=== PATIENT | male | born 1945 | race Caucasian/White ===

== ENCOUNTER 2024-03-31 08:52 | Outpatient (AMB) | payer OTHER, SELFPAY ==
--- NOTE | 2024-03-31 08:58 | MHC.OFFVIS ---
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 He describes his pain as sharp and severe in nature. His pain has gotten worse over the last few years in spite of continued non operative treatments. He has had both cortisone injections and viscosupplementation injections which gave him no relief. He has also done physical therapy which aggravates his pain. He has failed the last few months of conservative treatment. Has tried Tylenol and anti-inflammatory medicines which gave him minimal relief. The patient has difficulty walking even short distances because of his pain. At this point is left knee pain is interfering with his activities of daily living and his ability to sleep well through the night. Allergies No Known Allergies Allergy (Verified 03/31/24 09:07) [facility] Social History Current occupational status: retired Current occupation: right handed Physical Exam Const Other: Well-nourished well-developed very friendly male awake alert and oriented x3 in no acute distress Extrem Other: Bilateral lower extremity examination shows good capillary refill, no skin lesions noted, normal sensation light touch Left knee examination shows a minimal effusion, palpable crepitus with range of motion, pain with range of motion, range of motion from -3 degrees to 115 degrees, no instability Results Reviewed Results Reviewed: X-rays of the patient's left knee show end-stage degenerative joint disease with grade 4 qtox-yb-uhin arthritis, subchondral sclerosis, osteophyte formation, no acute bony abnormalities Assessment & Plan Assessment & Plan (1) Arthritis of left knee: Code(s): M17.12 - Unilateral primary osteoarthritis, left knee Category: Medical Plan Mr. Apodaca presents with progressively worsening left knee pain due to end-stage degenerative joint disease. I had a lengthy discussion with the patient regarding the treatment options. At this point he has failed continued non operative treatments. The risks and benefits of left total knee replacement surgery were discussed at length with the patient. The patient wishes to proceed with surgery. He will be scheduled for next available date. He will follow-up as instructed. Feel free to call me at any time should questions regarding his orthopedic management arise. I spent 22 minutes in reviewing the patient's records and imaging studies, seeing the patient and documenting in the medical record. Orders: Orders XR knee LT 3V Today M25.562 - Pain in left knee Coding Level of Care Code Est Pt Level 3 (83021) Complex EM visit Add On G2211 Diagnoses Arthritis of left knee M17.12
[2024-03-31 09:06] VITALS: BMI 25.8
--- OUTSIDE RECORDS SUMMARY | 2024-03-31 09:10 | XMS_ITS ---
Author Name [facility] Organization Unknown Allergies Allergen Reaction Severity Comment Documented Date Source Statu s PERCOCET nausea ENS_AONECT
--- OUTSIDE RECORDS SUMMARY | 2024-03-31 09:10 | XMS_ITS | Clinical Summary ---
Author Organization [facility] [employer] [facility] Address [address] [place] [address] Care Team Providers Care Night Stocker Name Role Phone Suraj Duran MD Primary Care Provider +1- [phone] Allergies No known active allergies Medications Medication Sig Dispensed Refills Start Date End Date Status metFORMIN (GLUCOPHAGE) tablet 500 mg 0 05/11/2018 Active meloxicam (MOBIC) 15 MG tablet 0 05/11/2018 Active atorvastatin (LIPITOR) tablet 40 mg 0 05/11/2018 Active Active Problems Problem Noted Date Diagnosed Date Primary osteoarthritis of left knee 09/16/2018 Chronic pain of left knee 09/16/2018 Arthritis of knee, right 07/21/2018 Primary osteoarthritis of both knees 06/24/2018 Arthritis of knee, left 06/24/2018 Family History Medical History Relation Name Comments Diabetes Mother Hyperlipidemia Sister Relation Name Status Comments Mother Sister Social History Tobacco Use Types Packs/Day Years Used Date Smoking Tobacco: Former Cigarettes 2 Q uit: 1993 Smokeless Tobacco: Never Alcohol Use Standard Drinks/Week Comments No 0 (1 standard drink = 0.6 oz pur e alcohol) Sex and Gender Information Value Date Recorded Sex Assigned at Not on file Gender Identity Not on file Sexual Orientation Not on file Last Filed Vital Signs Vital Sign Reading Time Taken Comments Blood Pressure - - Pulse - - Temperature - - Respiratory Rate - - Oxygen Saturation - - Inhaled Oxygen Concentration - - Weight 86.2 kg (190 lb) 09/15/2018 2:40 PM EDT Height 175.3 cm (5' 9 ) 09/15/2018 2:40 PM EDT Body Mass Index 28.06 09/15/2018 2:40 PM EDT Plan of Treatment Health Maintenance Due Date Last Done Comments Hepatitis C Screening 1945 COVID-19 Vaccine (#1) 06[birth year]17/1947 Depression Screening 1958 Preventative Health Evaluation 1964 DTap / Tdap / Td (1 - Tdap) 1965 Shingrix-Zoster Vaccine (1 of 2) 1996 Fall Risk Assessment 12/17/2011 Pneumococcal Vaccine (1 of 1 - PCV) 12/17/2011 RSV Adult > 60+ Yrs or (1 - 1-dose 75+ series) 2021 Influenza Vaccine (#1) 2023 8, 01/05/2017, 01/23/2016, Additional history exists Hepatitis B Vaccines Aged Out No long er eligible based on patient's age to complete this topic RSV Ped < 20 months Aged Out No longe r eligible based on patient's age to complete this topic Care Teams Night Stocker Relationship Specialty Start Date End Date Suraj Duran MD [address] [address] [place] [address] PCP - General Internal Medicine 06/16/18
== END 2024-03-31 09:28 | disposition home or self-care (01) ==
PROVIDERS: Visit Provider Orthopaedic Surgery
DX: M17.12 Unilateral primary osteoarthritis, left knee (principal)
CPT/HCPCS: 99213

== ENCOUNTER → 2024-03-31 08:56 | Outpatient (BNV) | payer OTHER, SELFPAY | PROVIDERS: Visit Provider Radiology Diagnostic Radiology | DX: M17.12 Unilateral primary osteoarthritis, left knee (principal) | CPT/HCPCS: 73562 ==

== ENCOUNTER 2024-03-31 15:32 | Outpatient (REF) | payer MEDICARE, SELFPAY ==
--- NOTE | ~2024-03-31 | XR_ITS ---
CLINICAL HISTORY: M25.562 - Pain in left knee 3 view left knee Comparison: None Findings: No fractures or dislocations. Tricompartmental osteoarthritis most conspicuous and severe (there is severe joint space narrowing at this level) at level of the medial tibiofemoral joint. A few questionable intra-articular bodies. No radiopaque foreign body. Small suprapatellar joint effusion. 9 mm likely dystrophic calcification projecting anterior to the distal femoral shaft. Vascular calcifications. IMPRESSION: 1. No acute findings. 2. Severe medial tibiofemoral compartmental osteoarthritis. This document has been electronically signed by: Colleen Talamantes MD on 04/01/2024 12:56:37
== END 2024-03-31 15:33 | disposition home or self-care (01) ==
LOC: HO.HOSX 15:32
PROVIDERS: Visit Provider Orthopaedic Surgery
DX: M17.12 Unilateral primary osteoarthritis, left knee (principal)
CPT/HCPCS: 73562; 99202

== ENCOUNTER → 2024-08-06 09:02 | Outpatient (BNVA) | payer MEDICARE, SELFPAY | PROVIDERS: PCP Internal Medicine | DX: Z01.818 Encounter for other preprocedural examination (principal) ==

== ENCOUNTER 2024-09-02 07:57 | Outpatient (AMB) | payer MEDICARE, SELFPAY ==
--- OUTSIDE RECORDS SUMMARY | 2024-09-02 08:01 | XMS_ITS | Encounter Summary ---
Author Organization [facility] Address [address] [place] [address] Care Team Providers Care Environmental Health And Safety Intern Name Role Phone Melvin Lara MD Primary Care Provider [phone]- [phone] Encounter Details Date Type Department Care Team (Latest Contact Info) Description 01/14/2024 Lab Requisition [facility] - Main Lab 299 [facility] [place] [phone] Melvin Lara MD 299 [facility] 322 [place] [address] Type 2 diabetes mellitus without complications (CMS/HCC [...] Description 11/10/2024 8:30 AM EDT Ancillary Procedure [facility] - [facility] 101 300 [facility] 101 [place] [phone] 12/24/2024 8:30 AM EDT Office Visit Vascular Surgery - [place] [address] [facility] 210 [place] [phone] Elieser Haines MD 300 [facility] 210 [place] [address] documented as of this encounter Procedures Procedure [...] greater than 65 years. Test performed at [facility], [address] , [place] [address] Ani Solano MD, PhD - Foundry Molder Blood Venous blood specimen / Unknown 01/14/2024 11:30 AM EST 01/16/2024 11:20 AM EST Melvin Lara MD LAB BLOOD ORDERABLES Final Result [facility] [address] [place] [address] * (ABNORMAL) Hemoglobin A1c (01/14/2024 11:30 AM EST) Hemoglobin A1C 6.7(H) <6.5 % LAB CHEMISTRY METHOD 01/16/2024 7:09 PM EST [facility] Mean Bld Glu Estim. 146 mg/dL LAB CHEMISTRY METHOD 01/16/2024 7:09 PM EST [facility] Blood Venous blood specimen / Unknown 01/14/2024 11:30 AM EST 01/16/2024 11:20 AM EST Melvin Lara MD LAB BLOOD ORDERABLES Final Result [facility] 299 [place] [address], [place] [phone] documented in this encounter Visit Diagnoses Diagnosis Type 2 diabetes mellitus without complications (CMS/HCC V24, CMS/HCC V28) documented in this encounter Care Teams Environmental Health And Safety Intern Relationship Specialty Start Date End Date Melvin Lara MD [address] [place] [id number] PCP - General Internal Medicine 01/21/24 documented as of this encounter
[2024-09-02 08:02] VITALS: BMI 25.8
--- NOTE | 2024-09-02 08:02 | A.OFFVIS_ITS ---
Vital Signs 09/02/24 08:02 Height 5 ft 9 in Weight 175 lb BMI 25.8 Intake Visit Reasons: Pre-Op: L TKA w/ 09/06/24 Intake Note: Mani is a 78 year old male who presents today as a new patient for evaluation of his left knee pain. He describes his pain as sharp and severe in nature. His pain has gotten worse over the last few years in spite of continued non operative treatments. He has had both cortisone injections and viscosupplementation injections which gave him no relief. He has also done physical therapy which aggravates his pain. He has failed the last few months of conservative treatment. Has tried Tylenol and anti-inflammatory medicines which gave him minimal relief. The patient has difficulty walking even short distances because of his pain. At this point is left knee pain is interfering with his activities of daily living and his ability to sleep well through the night. Allergies oxycodone (From Percocet) Allergy (Intermediate, Verified 09/02/24 08:07) Nausea Medication List - Last Reconciled 09/02/24 by Silvio Zurita MD amlodipine 5 mg PO QAM ascorbic acid (vitamin C) (Vitamin C) 1,000 mg PO QAM atorvastatin 40 mg PO BEDTIME gabapentin 300 mg PO TID levothyroxine 50 mcg PO QAM losartan 100 mg PO QAM meloxicam 7.5 mg PO QAM metformin ER 500 mg PO TID omeprazole 20 mg PO QAM walker Folding front wheeled walker [facility] Medical History [place] (hard of hearing) GERD (gastroesophageal reflux disease) Neuropathy HTN (hypertension) Hypothyroidism Varicose vein of leg Osteoarthritis Dyslipidemia Diabetes mellitus AAA (abdominal aortic aneurysm) Surgical History Hx of bilateral cataract extraction Hx of appendectomy History of varicose vein procedure Hx of arthroscopy of right knee History of carpal tunnel release Hx of colonoscopy (2002) Social History Are you a primary continuum of care manager to a significant other at home: No Do you presently have visiting nurse or other home services: No Comment: advised of trip hazard Patient Tobacco Use Status: Former Tobacco user Tobacco use type: Cigarette Years Smoked: 25 Current occupational status: retired Current occupation: right handed Physical Exam Vital Signs: BMI result Body Mass Index 25.8 Const Other: Well-nourished well-developed very friendly male awake alert and oriented x3 in no acute distress Extrem Other: Bilateral lower extremity examination shows good capillary refill, no skin lesions noted, normal sensation light touch Left knee examination shows a minimal effusion, palpable crepitus with range of motion, pain with range of motion, range of motion from -3 degrees to 115 degrees, no instability Results Reviewed Results Reviewed: X-rays of the patient's left knee show end-stage degenerative joint disease with grade 4 [id number] arthritis, subchondral sclerosis, osteophyte formation, no acute bony abnormalities Assessment & Plan Assessment & Plan (1) Arthritis of left knee: Code(s): M17.12 - Unilateral primary osteoarthritis, left knee Category: Medical Plan Mr. Apodaca presents with left knee pain due to end-stage degenerative joint disease. I had a lengthy discussion with the patient regarding the treatment options. At this point he has failed continued non operative treatments. The risks and benefits of left total knee replacement surgery were discussed at length with the patient. The patient wishes to proceed with surgery. business services coordinator will be consulted following his surgery for home physical therapy and nursing. He will follow up as instructed. Feel free to call me at any time should questions regarding his orthopedic management arise. I spent 22 minutes in reviewing the patient's records and imaging studies, seeing the patient and documenting in the medical record. Coding Level of Care Code Est Pt Level 3 (49062) Complex EM visit Add On G2211 Diagnoses Arthritis of left knee M17.12
== END 2024-09-02 08:29 | disposition home or self-care (01) ==
LOC: HO.HOS 07:57
PROVIDERS: PCP Internal Medicine; Visit Provider Orthopaedic Surgery
DX: M17.12 Unilateral primary osteoarthritis, left knee (principal)
CPT/HCPCS: 99213; G2211

== ENCOUNTER → 2024-09-02 07:57 | Outpatient (BNVA) | payer MEDICARE, SELFPAY | PROVIDERS: PCP Internal Medicine; Visit Provider Orthopaedic Surgery | DX: Z01.818 Encounter for other preprocedural examination (principal); M17.12 Unilateral primary osteoarthritis, left knee | CPT/HCPCS: 99212 ==

== ENCOUNTER 2024-09-06 07:02 | Day surgery (SDC) | payer MEDICARE, SELFPAY ==
--- OUTSIDE RECORDS SUMMARY | 2024-07-15 14:57 | XMS_ITS | Data Portability ---
Author Organization [place] [facility] [place] Address [address] [place] [address] Care Team Providers Care Production Proofreader Name Role Phone ALEX BACA Primary Care Provider [phone] Assessment Encounter Date Assessment Date Assessment LastModified by Organization Details LastModified Time 12/26/2022 12/26/2022 This is a pleasant 77-year-old male here for evaluation bilateral shoulder discomfort which originated from doing yard work over the summer however he is asymptomatic on the left side he is symptomatic on the right with findings consistent with impingement syndrome. And arthritis. I had discussion with the patient regarding management. He opted for cortisone injection of the right shoulder joint at today's visit. After verbal consent was granted by the patient. Procedure was carried out on the right shoulder. Patient tolerated the procedure well. Aftercare instructions were discussed in detail. Follow-up visit 3 months time for repeat clinical exam. Should symptoms not improve or worsen he should contact my office immediately. He agrees with above-noted plan he can take gbri-gqu-[id number] pain medication for pain suppression. This is a very pleasant 77-year-old male who had onset of bilateral shoulder pain back in the summer after doing yard work for indirect care and treatment in conjunction with Dr. Strong Additional treatment plan discussed with the patient (only initiated if in boldface font) otherwise not applicable. Treatment may include the following; - Provider focused nonsteroidal anti-inflammator y regimen (discussed were the pros, cons, benefits and risks as well as any black box warnings) in patients over 60 years old they should be very cautious in taking these medications due to potential decreased kidney function and or elevated blood pressure. - Analgesic pain medication for pain suppression (discussed were the pros, cons, benefits and risks as well as any black box warnings) - The use of topical pain relieving medication were discussed - The use of ice to decrease inflammation and pain - The use of assistive ambulatory devices for ambulation and fall prevention - Formal specific guided physical therapy program I reviewed my findings at length with the patient today. ? ? ?We discussed the nature and etiology of this problem along with current treatment options. We discussed the expected course and outcomes and what to expect. We also discussed risks and benefits. ? ? ? All of their questions were answered today, and there was exhibited understanding and comprehension of all that was discussed. Time Spent: 10 minutes were spent reviewing previous imaging and charting. ? ? ?10 minutes were spent obtaining patient history. ? ? ?5 minutes were spent on physical exam. ? ? ?5? ? ?minutes were spent explaining diagnosis and assessment. Today's documentation was made using voice recognition software. This note may contain grammatical errors secondary to the software. [email or web address] Not available 12/26/2022 09:37:06 Plan of Treatment Reminders Order Date Submit Date Provider Last Modified By Organization Details Last Modified Time Details Appointments None recorded. Lab None recorded. Referral None recorded. Procedures None recorded. Surgeries None recorded. Imaging XR, shoulder, 2 or more view 2022 023 [email or web address] [facility], [address], [place], [address], 3 12:06:13 XR, shoulder, 2 or more view 2022 023 [email or web address] [facility], [address], [place], [address], 12:06:13 Medication Orders Kenalog 40 mg/mL suspension for injection 2022 023 [email or web address] [id number], [address] [place], [address], 3 12:06:13 lidocaine (PF) 10 mg/mL (1 %) injection solution 2022 023 [email or web address] [facility], [address] [place], [address], 3 12:06:13 Patient TargetsNo targets recorded. Patient InstructionsNo instructions recorded. Reason for Referral None Reported. Procedures Surgical History Date Name Laterality Status Provider Name and Address Organization Details Recorded Time 3 Shoulder Joint/Bursa Asp & Inj completed JOCE SMITH PA-C [address] [place] [address],[facility] [address], [place], [address], [place] [facility] 12/26/2022 09:36:01 procedure on appendix completed [facility] - [facility] 12/26/2022 09:43:56 Imaging Results None recorded. Procedure Notes None recorded. Medical Equipment None Reported. Allergies Allergen ID Allergen Name Allergen Category Reaction Reaction Severity Criticality Documentation Date Start Date Code Code System Note Provider Name and Address Organization Details Recorded Time 92 acetamino phen / oxycodone medicatio n nausea Not available Not available 12/26/2022 [address] 3 [facility], [place] - [facility] 3 08:59:46 Medications Name Sig Start Date Stop Date Status Note LastModified by Organization Details LastModified Time losartan 50 mg tablet active Not Available Not Available No t Available atorvastati n 40 mg tablet active Not Available Not Available Not Available azithromyci n 250 mg tablet TAKE 2 TABLETS BY MOUTH FOR 1 DAY THEN, TAKE 1 TABLET BY MOUTH DAILY FOR 4 DAYS active Not Available Not Available No t Available ketorolac 0.5 % eye drops PLEASE SEE ATTACHED FOR DETAILED DIRECTION S active Not Available Not Available No t Available Kenalog 40 mg/mL suspension for injection Take 1 mL by injection route. 2022 active Not Available Not Available Not Avai lable meloxicam 7.5 mg tablet active Not Available Not Available Not Available benzonatate 100 mg capsule TAKE 1 CAPSULE BY MOUTH 3 TIMES DAILY NEEDED FOR COUGH FOR UP TO 7 DAYS. active Not Available Not Available No t Available levothyroxi ne 50 mcg tablet TAKE 1 TABLET BY MOUTH EVERY DAY active Not Available Not Available No t Available lisinopril 10 mg tablet 12/26 completed Not Available Not Available Not Available losartan 25 mg tablet active Not Available Not Available No t Available gabapentin 300 mg capsule active Not Available Not Available Not Available metformin ER 500 mg tablet,exte nded release 24 hr active Not Available Not Available Not Available lidocaine (PF) 10 mg/mL (1 %) injection solution Take 2 mL by injection route. 2022 active Not Available Not Available Not Jeff lable Vitals Date Recorded Body height Body mass index (BMI) Body weight Provider Name and Address Organization Details Last Updated DateTime 12/26/2022 177.8 cm 24.4 kg/m2 01925.7 g Christina Meyer [place] [facility] 12/26/2022 09:38:47 Social History Question Answer Notes LastModified by Organizat ion Details LastModified Time Tobacco Smoking Status Never Smoker Christina Meyer [facility], [place] - [facility] 12/26/2022 09:41:28 What Is Your Level Of Alcohol Consumption? None Information not available 12/26/2022 Do You Use Any Illicit Or Recreational Drugs? No Information not available 12/26/2022 Do You Or Have You Ever Used Any Other Forms Of Tobacco Or Nicotine? No Information not available 12/26/2022 Sex: Unknown Functional Status None recorded. Mental Status None recorded. Family History Relationship Description Onset Age of this Age Resolved Age Notes LastModified by Organization Details LastModified Time Mother Arthritis Not available 12/26/2022 09:43:08 Mother Diabetes mellitus Not available 2022 09:43:23 Mother Hypertensive disorder Not available 2022 09:43:44 Sister Family history of malignant neoplasm Not available 2022 09:43:16 Sister Hypercholest erolemia Not available 2022 09:43:35 Medical History Condition Response Diabetes Y Vascular Disease Y Thyroid Problems Y Reflux/GERD Y Hypertension Y Past Encounters Encounter ID Performer Location Encounter Start Date Encounter Closed Date Diagnosis/Indication Diagnosis SNOMED-CT Code Diagnosis ICD10 Code Diagnosis Note [id number] [place] [address] [address] 12/26/2022 08:38:13 12/26/2022 09:35:04 Pain of right shoulder joint [id number] 6473389 M25.511 Pain of le ft shoulder joint [id number] 2194704 M25.512 Health Concerns Section Related Observation LastModified by Organization Detai ls LastModified Time None Recorded Concern Status LastModified by Organization Details LastModified Time None Recorded Advance Directives Directive None Recorded Payers Encounter Date Sequence Insurance Name Policy Number Policy Nguyen Covered Member ID Nguyen Member ID Guarantor Name 12/26/2022 1 [facility] (MEDICARE REPLACEMENT/A DVANTAGE - HMO) [id number] Mani Apodaca [id number] Mani Apodaca Notes Date Note Type Note Provider Name and Address Organization Details Recorded Time 12/26/2022 text/html This is a very pleasant 77-year-old male appears younger than his stated age accompanied by his at today's visit. 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 He states however it is since dissipated he is asymptomatic on the left shoulder he has occasional nocturnal symptoms on the right pain however the lateral deltoid with certain movements. He denies any weakness or paresthesia denies neck symptoms. Here for evaluation treatment. JOCE SMITH PA-C [address] [place] [address], [place], [address], [place] [facility] 12/26/2022 10:31:32
--- OUTSIDE RECORDS SUMMARY | 2024-07-15 14:57 | XMS_ITS | Clinical Summary ---
Author Organization [facility] Address [address] [place] [address] Care Team Providers Care Tricot Knitting Machine Operator Name Role Phone Suraj Duran MD Primary Care Provider +1- [phone] Allergies No known active allergies Medications Medication [...] age to complete this topic Care Teams Tricot Knitting Machine Operator Relationship Specialty Start Date End Date Suraj Duran MD [address] [facility] [facility] [address] [place] [address] PCP - General Internal Medicine 06/16/18
--- OUTSIDE RECORDS SUMMARY | 2024-07-15 14:57 | XMS_ITS | Clinical Summary ---
Author Organization [facility] Address [address] [place] [phone] Phone Care Team Providers Care Lap Regulator Name Role Phone Melvin Lara MD Primary Care Provider +1- [phone] Surgical History Surgery Date Site/Laterality Comments CARPAL TUNNEL RELEASE 06/09/1997 Left PROCEDURE: HISTORICAL CARPAL TUNNEL REL KNEE SURGERY 1988 Right PROCEDURE: HISTORICAL KNEE SURGERY; COMMENT: Dr. Lester APPENDECTOMY PROCEDURE: HISTORICAL APPENDECTOMY CATARACT EXTRACTION 01/2023 PROCEDURE: HISTORICAL CATARACT REMOVAL Medical History Medical History Date Comments Cataracts, bilateral 02/22/2019 DX:Cataract s, bilateral; COMMENT: [facility]. Appt in May 2019 Osteoarthritis 02/22/2019 DX:Osteoarthriti s History of varicose vein ligation 02/22/2019 DX:History of varicose vein ligation; COMMENT: Dr. Templeton Abdominal aortic aneurysm (A AA) 3.0 cm to 5.5 cm in diameter in male ([facility] V24) 02/22/2019 DX:Abdominal aortic aneurysm (AAA) 3.0 cm to 5.5 cm in diameter in male (HCC); COMMENT: 2014-3.1cm 2016 3.4 CM 2018 normal Diabetic neuropathy ([facility]CC V24, [facility] V28) 03/31/2019 DX:Diabetic neuropathy (HCC) Hypothyroidism 02/22/2019 DX:Hypothyroidis m Dyslipidemia 03/31/2019 DX:Dyslipidemia Type 2 diabetes mellitus wit h vascular disease (CMS/HCC V24, 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 V24, [facility]/HCC V28) 03/31/2019 DX:Type 2 diabetes mellitus with cataract (HCC) Hiatal hernia 09/27/2019 DX:Hiatal hernia ; COMMENT: Barium swallow 09/17/2019 Family History Medical History Relation Name Comments Diabetes Mother Hyperlipidemia Sister Relation Name Status Comments Father Mother Sister Social History Tobacco Use Types Packs/Day Years Used Date Smoking Tobacco: Former Smokeless Tobacco: Never Alcohol Use Standard Drinks/Week Comments No 0 (1 standard drink = 0.6 oz pur e alcohol) Sex and Gender Information Value Date Recorded Sex Assigned at Not on file Legal Sex Male 9:08 PM EST Gender Identity Not on file Sexual Orientation Not on file Obstetrics History Last Filed Vital Signs Vital Sign Reading Time Taken Comments Blood Pressure 131/75 12/22/2023 9:37 AM EDT Sit ting R Arm Pulse 73 12/22/2023 9:37 AM EDT Temperature - - Respiratory Rate - - Oxygen Saturation - - Inhaled Oxygen Concentration - - Weight 83.5 kg (184 lb) 12/22/2023 9:37 AM EDT Height 175.3 cm (5' 9 ) 12/22/2023 9:37 AM EDT Body Mass Index 27.17 12/22/2023 9:37 AM EDT Plan of Treatment Upcoming Encounters Date Type Department Care Team (Late st Contact Info) Description 11/10/2024 8:30 AM EDT Ancillary Procedure [facility] [address] [address] [place] [address] 12/24/2024 8:30 AM EDT Office Visit Vascular Surgery - [place] [address] [place] [address] Elieser Haines MD [address] [place] [address] Health Maintenance Due Date Last Done Comments Diabetes: Annual Foot Exam 1955 Diabetes: Annual Retina Eye Exam 1955 RSV Immunization Adult Patients (1 - 1-dose 75+ series) 2021 Cholesterol Screening (Lipid Panel) 02/09/2022 Depression Screening 02/09/2022 Falls Risk Assessment 02/09/2022 Hepatitis C Screening 02/09/2022 Medicare Annual Wellness Visit 02/09/2022 Social Influencers of Health Screening 02/09/2022 Diabetes: Annual Urine Albumin-Creatinine Ratio (uACR) 02/20/2022 COVID-19 Vaccine ( season) 2024 12/11/2023, 12/27/2022, 11/24/2022, Additional history exists Diabetes: Blood Sugar Control Test (HGBA1C) 07/13/2024 01/14/2024, 08/22/2023 Diabetes: Annual GFR (Glomerular Filtration Rate) 08/21/2024 08/22/2023 Hypertension/CHF/CAD Annual BMP Blood Test 08/21/2024 08/22/2023 DTaP,Tdap,and Td Vaccines (4 - Td or Tdap) 05/08/2033 05/09/2023, 01/18/2013, 05/22/2007 Hepatitis A Vaccines Aged Out 01/22/2010 No long er eligible based on patient's age to complete this topic Pneumococcal Vaccine: 50+ Years Completed 01/24/2020, 09/04/2015, 01/27/2008 Zoster Vaccines Completed 09/20/2022, 04/24/2022 Influenza Vaccine Completed 12/11/2023, , 11/19/2022, Additional history exists HIB Vaccines Aged Out No longer eligi ble based on patient's age to complete this topic HPV Vaccines Aged Out No longer eligi ble based on patient's age to complete this topic Hepatitis B Vaccines Aged Out No long er eligible based on patient's age to complete this topic IPV Vaccines Aged Out No longer eligi ble based on patient's age to complete this topic MMR Vaccines Aged Out No longer eligi ble based on patient's age to complete this topic Meningococcal ACWY Vaccine Aged Out N o longer eligible based on patient's age to complete this topic Meningococcal B Vaccine Aged Out No l onger eligible based on patient's age to complete this topic RSV Immunization Patients Under 20 months Aged Out No longer eligible based on patient's age to complete this topic Varicella Vaccines Aged Out No longer eligible based on patient's age to complete this topic Procedures Procedure Name Priority Date/Time Associated Diagnosis Comments HEMOGLOBIN A1C Routine 01/14/2024 11:30 AM EST Type 2 diabetes mellitus without complications (CMS/HCC) from Last 3 Months or Most Recently Relevant to Health Maintenance Results * (ABNORMAL) Hemoglobin A1c (01/14/2024 11:30 AM EST) Hemoglobin A1C 6.7(H) <6.5 % LAB CHEMISTRY METHOD 01/16/2024 7:09 PM EST [facility] Mean Bld Glu Estim. 146 mg/dL LAB CHEMISTRY METHOD 01/16/2024 7:09 PM EST [facility] Blood Venous blood specimen / Unknown 01/14/2024 11:30 AM EST 01/16/2024 11:20 AM EST us Melvin Lara MD LAB BLOOD ORDERABLES Final Result [facility] [address] [place] [address], from Last 3 Months or Most Recently Relevant to Health Maintenance Insurance [employer] MEDICARE [employer] MED[employer]ARE Care Teams Lap Regulator Relationship Specialty Start Date End Date Melvin Lara MD [address] [place] [address] PCP - General Internal Medicine 01/21/24
--- OUTSIDE RECORDS SUMMARY | 2024-07-15 14:57 | XMS_ITS | Encounter Summary ---
Author Organization [facility] Address [id number] [place] [phone] Care Team Providers Care Travel Journalist Name Role Phone Melvin Lara MD Primary Care Provider [phone] Encounter Details Date Type Department Care Team (Latest Contact Info) Description 01/14/2024 Lab Requisition [facility] - Main Lab 299 [facility] [place] [phone] Melvin Lara MD 299 [facility] 322 [place] [address] Type 2 diabetes mellitus without complications (CMS/HCC V24, CMS/HCC V28) Social History Tobacco Use Types Packs/Day Years Used Date Smoking Tobacco: Never Assessed Sex and Gender Information Value Date Recorded Sex Assigned at Not on file Legal Sex Male 9:08 PM EST Gender Identity Not on file Sexual Orientation Not on file documented as of this encounter Plan of Treatment Upcoming Encounters Date Type Department Care Team (Late st Contact Info) Description 11/10/2024 8:30 AM EDT Ancillary Procedure [facility] - [facility] 101 [address] [facility] 101 [place] [phone] 12/24/2024 8:30 AM EDT Office Visit Vascular Surgery - [place] 300 [facility] [address] [place] [phone] Elieser Haines MD 300 [facility] 210 [place] [address] documented as of this encounter Procedures Procedure Name Priority Date/Time Associated Diagnosis Comments FRUCTOSAMINE Routine 01/14/2024 11:30 AM EST Type 2 diabetes mellitus without complications (CMS/HCC) HEMOGLOBIN A1C Routine 01/14/2024 11:30 AM EST Type 2 diabetes mellitus without complications (CMS/HCC) documented in this encounter Results * Fructosamine (01/14/2024 11:30 AM EST) Fructosamine 355 SeeBelow umol /L 01/19/2024 10:18 AM EST [facility] Comment: There is no established reference range for patients aged less than 19 years or greater than 65 years. Test performed at [facility], [address] , [place], [place] ??[address] ? [phone] Ani Solano MD, PhD - Crossbar Switch Adjuster Blood Venous blood specimen / Unknown 01/14/2024 11:30 AM EST 01/16/2024 11:20 AM EST us Melvin Lara MD LAB BLOOD ORDERABLES Final Result [facility] [address] [place] [address] * (ABNORMAL) Hemoglobin A1c (01/14/2024 11:30 AM EST) Hemoglobin A1C 6.7(H) <6.5 % LAB CHEMISTRY METHOD 01/16/2024 7:09 PM EST [facility] Mean Bld Glu Estim. 146 mg/dL LAB CHEMISTRY METHOD 01/16/2024 7:09 PM EST [facility] Blood Venous blood specimen / Unknown 01/14/2024 11:30 AM EST 01/16/2024 11:20 AM EST us Melvin Lara MD LAB BLOOD ORDERABLES Final Result [facility] [address] [phone] documented in this encounter Visit Diagnoses Diagnosis Type 2 diabetes mellitus without complications (CMS/HCC V24, CMS/HCC V28) documented in this encounter Care Teams Travel Journalist Relationship Specialty Start Date End Date Melvin Lara MD [address] [address] PCP - General Internal Medicine 01/21/24 documented as of this encounter
[2024-08-09 10:24] VITALS: BP 133/72; PULSE 74; RESP 20; O2SAT 96; BMI 26.6
[2024-08-09 12:46] LABS: MRSA Nasal PCR NEGATIVE (Negative); SA Nasal PCR POSITIVE (Negative)
[2024-09-03 13:17] LABS: Hematocrit 37.4 % (42.0-52.0); Hemoglobin 13.1 g/dl (14.0-18.0); Mean Corpuscular HGB Conc 35.0 g/dl (31.0-36.0); Mean Corpuscular Hemoglobin 30.0 pg (27.0-33.0); Mean Corpuscular Volume 85.6 fL (80.0-98.0); NRBC Abs Auto 0.000 X10*3/uL (0.0-0.012); NRBC Pct Auto 0.0 /100WBC (0.0-0.2); Platelet Count 274 X10*3/uL (160-400); Red Blood Count 4.37 X10*6/uL (4.60-5.80); White Blood Count 10.2 X10*3/uL (4.8-10.8)
[2024-09-03 13:51] LABS: Anion Gap 13 (12-20); Blood Urea Nitrogen 11 mg/dL (9-16); Calcium 9.0 mg/dL (8.4-10.2); Carbon Dioxide 25 mmol/L (22-29); Chloride 97 mmol/L (96-108); Creatinine Clr Calc Pharmacy 60.0; Estimated Glomerular Filt Rate > 60; Potassium 3.9 mmol/L (3.3-5.1); Sodium 131 mmol/L (135-145)
[2024-09-06] VITALS (9 sets, daily range): BP systolic 112–153; BP diastolic 67–96; PULSE 65–86; RESP 16–18; TEMP 36–36.6; O2SAT 94–98; BMI 25.2; BMI 26.3
[2024-09-06 07:58] LABS: Glucose, Whole Blood 150 mg/dL (60-115)
[2024-09-06] MEDS: Lactated Ringers 1,000 ML 100 ML IVCONT ×3 (08:05→23:14)
--- NOTE | 2024-09-06 08:40 | HO.ANESPROP2 ---
Documented by User: Berta Mukherjee NP 09/03/24 14:14 HPI - Anesthesia Eval Consult details Narrative: 78yo M for Left Knee Replacement Total, 09/06/24 Medically optimized for surgery per [facility] No recent illness No CP/SOB with a lot of walking DM: Does not check POC. A1C = 7.1% GERD: ppi controls AAA: Follows [facility] vascular with yearly imaging. 2023 @ 3.2 MOLST/DNR: reviewed periop reversal PMFSH Active Problems Active Problems: All Active Problems Pre-op exam (Acute) Arthritis of left knee (Acute) Left knee pain (Acute) Past Medical History Medical History [place] (hard of hearing) GERD (gastroesophageal reflux disease) Neuropathy HTN (hypertension) Hypothyroidism Varicose vein of leg Osteoarthritis Dyslipidemia Diabetes mellitus AAA (abdominal aortic aneurysm) Family History Family history of problems with anesthesia: No Surgical History Surgical History Hx of bilateral cataract extraction Hx of appendectomy History of varicose vein procedure Hx of arthroscopy of right knee History of carpal tunnel release Hx of colonoscopy (2002) History of Problems with Anesthesia: No Social History Social History Are you a primary home care liaison to a significant other at home: No Do you presently have visiting nurse or other home services: No Comment: advised of trip hazard Patient Tobacco Use Status: Former Tobacco user Tobacco use type: Cigarette Years Smoked: 25 Use of substances other than those prescribed or required for medical reasons: No Have you been hit, kicked, punched, or otherwise hurt by someone within the past year? If so, by whom?: No Spiritual Healthcare Practices: no Anabaptist Healthcare Practices: no Cultural Healthcare Practices: no Are you DNR?: Yes Advance Directives Information Provided: Yes (advised to bring copies DOS) Advance Directives on File: No Poor oral hygiene: No Current occupational status: retired Current occupation: right handed Meds Allergies Allergy/AdvReac Type Severity Reaction Status Date / Time oxycodone Allergy Intermediate Nausea Verified 09/06/24 07:12 Home Medications ?Medication ?Instructions ?Recorded ?Confirmed ?Last Taken ?Type amlodipine 5 mg tablet 5 mg PO QAM 08/06/24 09/02/24 09/06/24 History atorvastatin 40 mg tablet 40 mg PO BEDTIME 08/06/24 09/02/24 09/05/24 History gabapentin 300 mg capsule 300 mg PO TID 08/06/24 09/02/24 09/05/24 History levothyroxine 50 mcg tablet 50 mcg PO QAM 08/06/24 09/02/24 09/06/24 History losartan 100 mg tablet 100 mg PO QAM 08/06/24 09/02/24 09/05/24 History meloxicam 7.5 mg tablet 7.5 mg PO QAM 08/06/24 09/06/24 08/23/24 History metformin 500 mg tablet,extended 500 mg PO TID 08/06/24 09/02/24 09/05/24 History release 24 hr omeprazole 20 mg tablet,delayed 20 mg PO QAM 08/06/24 09/02/24 09/06/24 History release ascorbic acid (vitamin C) 500 mg 1,000 mg PO QAM 08/09/24 09/06/24 Unknown History chewable tablet (Vitamin C) Exam Height,Weight and Vital Signs: Height 5 ft 9 in Weight 81.647 kg Last Vital Signs Pulse 74 08/09/24 10:24 Resp 20 08/09/24 10:24 BP 133/72 08/09/24 10:24 Pulse Ox 96 08/09/24 10:24 O2 Del Method Room Air 08/09/24 10:24 Pertinent Lab Results Pertinent Lab Results: Lab Results 08/09/24 Range/Units 10:40 Nasal Screen MRSA (PCR) NEGATIVE (Negative) Nasal S. aureus Screen POSITIVE A (Negative) Nasal MRSA/S.aureus Interp SEE NOTE Lab Results 08/09/24 09/03/24 Range/Units 10:40 12:50 WBC 10.2 (4.8-10.8) X10*3/uL RBC 4.37 L (4.60-5.80) X10*6/uL Hgb 13.1 L (14.0-18.0) g/dl Hct 37.4 L (42.0-52.0) % MCV 85.6 (80.0-98.0) fL MCH 30.0 (27.0-33.0) pg MCHC 35.0 (31.0-36.0) g/dl RDW 12.5 (11.0-16.0) % Plt Count 274 (160-400) X10*3/uL MPV 10.1 (9.4-12.4) fL Absolute Nucleated RBC 0.000 (0.0-0.012) X10*3/uL Nucleated RBC % (auto) 0.0 (0.0-0.2) /100WBC Sodium 131 L (135-145) mmol/L Potassium 3.9 (3.3-5.1) mmol/L Chloride 97 (96-108) mmol/L Carbon Dioxide 25 (22-29) mmol/L Anion Gap 13 (12-20) BUN 11 (9-16) mg/dL Creatinine 1.03 (0.5-1.4) mg/dL Estim Creat Clear Calc 60.0 Estimated GFR > 60 Random Glucose 113 (60-115) mg/dL Calcium 9.0 (8.4-10.2) mg/dL Nasal Screen MRSA (PCR) NEGATIVE (Negative) Nasal S. aureus Screen POSITIVE A (Negative) Nasal MRSA/S.aureus Interp SEE NOTE Blood Type O Positive Antibody Screen NEGATIVE Narrative Narrative: EKG 07/2024 Ventricular Rate: 71 ?BPM Atrial Rate: 71 ?BPM P-R Interval: 198 ?ms QRS Duration: 88 ?ms Q-T Interval: 396 ?ms QTC Calculation(Bazett): 430 ?ms P [place]: 61 ?degrees R [place]: -63 ?degrees T [place]: 13 ?degrees Normal sinus rhythm Left axis deviation Low voltage QRS infero-posterior infarct , age undetermined Abnormal ECG When compared with ECG of 22-Apr-2006 12:02, Manual comparison by [facility] preop provider states - abnormal EKG dating back to 2006 unchanged Airway Mallampati Class: II TM Dist: >3cm Neck ROM: Full Denture: Upper and Lower Heart: RRR Lungs: CTAB Assessment and Plan Assessment Anesthesia Assessment: Chart Reviewed Final Anesthetic Review Family History of Problems with Anesthesia: No History of Problems with Anesthesia: No Documented by User: Rossy Figueroa, 09/06/24 09:44 [facility] Past Medical History Medical History [place] (hard of hearing) GERD (gastroesophageal reflux disease) Neuropathy HTN (hypertension) Hypothyroidism Varicose vein of leg Osteoarthritis Dyslipidemia Diabetes mellitus AAA (abdominal aortic aneurysm) Family History Family history of problems with anesthesia: No Surgical History Surgical History Hx of bilateral cataract extraction Hx of appendectomy History of varicose vein procedure Hx of arthroscopy of right knee History of carpal tunnel release Hx of colonoscopy (2002) History of Problems with Anesthesia: No Social History Social History Are you a primary home care liaison to a significant other at home: No Do you presently have visiting nurse or other home services: No Comment: advised of trip hazard Patient Tobacco Use Status: Former Tobacco user Tobacco use type: Cigarette Years Smoked: 25 Use of substances other than those prescribed or required for medical reasons: No Have you been hit, kicked, punched, or otherwise hurt by someone within the past year? If so, by whom?: No Spiritual Healthcare Practices: no Anabaptist Healthcare Practices: no Cultural Healthcare Practices: no Are you DNR?: Yes Advance Directives Information Provided: Yes (advised to bring copies DOS) Advance Directives on File: No Poor oral hygiene: No Current occupational status: retired Current occupation: right handed Meds Allergies Allergy/AdvReac Type Severity Reaction Status Date / Time oxycodone Allergy Intermediate Nausea Verified 09/06/24 07:12 Home Medications ?Medication ?Instructions ?Recorded ?Confirmed ?Last Taken ?Type amlodipine 5 mg tablet 5 mg PO QAM 08/06/24 09/02/24 09/06/24 History atorvastatin 40 mg tablet 40 mg PO BEDTIME 08/06/24 09/02/24 09/05/24 History gabapentin 300 mg capsule 300 mg PO TID 08/06/24 09/02/24 09/05/24 History levothyroxine 50 mcg tablet 50 mcg PO QAM 08/06/24 09/02/24 09/06/24 History losartan 100 mg tablet 100 mg PO QAM 08/06/24 09/02/24 09/05/24 History meloxicam 7.5 mg tablet 7.5 mg PO QAM 08/06/24 09/06/24 08/23/24 History metformin 500 mg tablet,extended 500 mg PO TID 08/06/24 09/02/24 09/05/24 History release 24 hr omeprazole 20 mg tablet,delayed 20 mg PO QAM 08/06/24 09/02/24 09/06/24 History release ascorbic acid (vitamin C) 500 mg 1,000 mg PO QAM 08/09/24 09/06/24 Unknown History chewable tablet (Vitamin C) Exam Exam Date and Time: 09/06/24 0840 Height,Weight and Vital Signs: Height 5 ft 9 in Weight 81.647 kg Last Vital Signs Pulse 74 08/09/24 10:24 Resp 20 08/09/24 10:24 BP 133/72 08/09/24 10:24 Pulse Ox 96 08/09/24 10:24 O2 Del Method Room Air 08/09/24 10:24 Vital Signs Pulse Rate 74 08/09/24 10:24 Respiratory Rate 20 08/09/24 10:24 Blood Pressure 133/72 08/09/24 10:24 Pulse Oximetry 96 08/09/24 10:24 Oxygen Delivery Method Room Air 08/09/24 10:24 Temperature 97.7 F 09/06/24 07:57 Pulse Rate 72 09/06/24 07:57 Respiratory Rate 16 09/06/24 07:57 Blood Pressure 137/75 09/06/24 07:57 Pulse Oximetry 94 09/06/24 07:57 Oxygen Delivery Method Room Air 09/06/24 07:57 Airway Mallampati Class: II TM Dist: >3cm Neck ROM: Full Denture: Upper and Lower Heart: S1S2 Assessment and Plan Assessment Anesthesia Assessment: Anesthesia Plan Discussed and Chart Reviewed Final Anesthetic Review Family History of Problems with Anesthesia: No History of Problems with Anesthesia: No NPO: Yes ASA Class: II Final Preanesthetic Review: No Changes in Pt Med Stat, Meds/Allgs Chart Reviewed, Consent Obtained/Reviewed, Anes Risks/Benef Reviewed and DNR Form (If Appl.) (DNR/DNI suspended during perioperative period. Will resume original status upon discharge from PACU.) Patient Risk: Low Procedure Risk: Intermediate Anesthetic Plan Anesthetic Plan: Spinal, Regional Block (left addictor canal and left ipack blocks) and Agree w/ Assess. and Plan Disposition: Standard PACU
--- NOTE | 2024-09-06 11:59 | P.BOP_ITS ---
Brief Operative Note Date of Service: 09/06/24 Pre-op diagnosis: Left knee degenerative joint disease Post-op diagnosis: same Procedure: Left total knee arthroplasty Implants: Pratt Triathlon cemented posterior stabilized total knee arthroplasty with a femoral component size 4 left, tibial component size 5, polyethylene liner size 5 with 13 mm of thickness, an asymmetric patellar component size 32 with 10 mm of thickness Surgeon: Silvio Zurita MD Anesthesia: regional and spinal Was an Wind Turbine Machinist used for this Procedure?: No Wind Turbine Machinist: Toy Mckeon Estimated blood loss (mL): 200 Pathology: other (Bony fragments from the left femur, tibia and patella) Condition: stable Disposition: PACU
--- NOTE | 2024-09-06 12:02 | P.OP_ITS ---
Operative Note Operative Note Date of Service: 09/06/24 Narrative: After the patient was identified as Mani Apodaca and his left knee was initialed by myself the patient was brought to the holding area where a left leg nerve block was performed by the anesthesiologist in routine fashion. The patient was then brought to the operating room where conscious sedation and spinal anesthesia were performed by the anesthesiologist in routine fashion. Because of the patient's history of diabetes he was given both IV Ancef and IV vancomycin preoperatively for infection prophylaxis. The patient's left lower extremity was prepped and draped in sterile fashion. A formal time-out was completed. The patient's left knee was placed onto a small bump to produce 30? of knee flexion during exposure. A #10 scalpel blade was used to make a midline incision extending 1 handbreadth proximal and distal to the patella. A second #10 scalpel blade was used to dissect the subcutaneous tissues down to the extensor mechanism. The subcutaneous flaps were maintained as thick as possible. A medial parapatellar arthrotomy was then performed using a #10 scalpel blade. The arthrotomy was begun just medial to the patellar tendon. The arthrotomy was continued 1 cm medial to the patella and then 5 mm into the medial aspect of the quadriceps tendon. The infrapatellar fat pad was partially excised to help with exposure. The soft tissue retinaculum was raised one-half of the way around the medial aspect of the proximal tibia. The patella was everted and the knee was flexed to 90?. There was no injury to the patellar tendon or its insertion onto the tibial tubercle. A drill bit was introduced into the distal aspect of the femur with a starting point 1 cm anterior to the origin of the posterior cruciate ligament. The intramedullary alignment adri was put into place. The distal alignment guide was set for a 5 degree valgus cut. The distal cutting block was put into place and was held with 4 pins. The intramedullary alignment adri was removed. Soft tissues were retracted in the d istal femoral cut was made using a sagittal saw. The distal aspect of the femur measured to be a size 4 left component. Two drill holes were placed into the distal aspect of the femur marking 3? of external rotation. The distal cutting block was impacted into place and was held with 2 pins. Soft tissues were retracted and the 4 distal femoral cuts were made using a sagittal saw. Final notching and drilling of the distal aspect of the femur were performed in routine fashion. The trial femoral component was impacted into place. The knee was taken through a full range of motion. The patella tracked well. The patella was everted and the knee was flexed to 90?. The trial component was removed and our attention was directed to the proximal tibia. The medial and lateral menisci were removed using a #10 scalpel blade. A small rim of the medial meniscus was left intact to help prevent injury to the medial collateral ligament. A drill bit was then introduced into the proximal tibia with a starting point midway from medial to lateral and one-third of the way posteriorly. The intramedullary alignment adri was put into place. The proximal tibial cutting guide was placed over the alignment adri in line with the 2nd toe. The guide was held in place using 3 pins. The intramedullary alignment adri was removed. Soft tissues were retracted and the proximal tibial cut was made using a sagittal saw. The proximal tibia measured to be a size 5 component. The tibial tray was put into place with a 13 mm liner. The femoral component was impacted into place. The knee was taken through a full range of motion. There was full flexion and full extension. There was no instability with varus or valgus stress testing with the knee in flexion or extension. The patella tracked well with no medially directed force. The rotation of the tibial tray was marked using electrocautery with the knee in extension. The patella was everted and the knee was flexed to 90?. All trial components were removed. The tibial tray was placed onto the proximal tibia in line with the electrocautery lei. The tray was held in place using 3 pins. Final broaching of the proximal tibia was performed in routine fashion. The trial liner and trial femoral component were put into place. The knee was brought into extension and our attention was directed to the patella. The patella measured 25 mm in thickness. The patellar resection guide was set for a 10 mm resection. Soft tissues were retracted and the patella cut was made using a sagittal saw. The remaining patella measured 15 mm in thickness. The undersurface of the patella was measured to be a size 32 asymmetric component. Three drill holes were placed into the undersurface of the patella in routine fashion. The trial component was put into place. The knee was taken through a full range of motion. The patella tracked well. The patella was everted and the knee was flexed to 90?. All trial components were removed. The knee was once again brought into extension and placed onto a small bump. The knee joint was irrigated with copious amounts of normal saline solution via pulse lavage while the cement was mixed. The patella was everted and the knee was flexed to 90?. A small amount of cement was placed along the posterior aspects of the tibial and femoral components. Cement was then pressurized into the proximal tibia. The tibial component was impacted into place. Any excess cement was removed. The polyethylene liner was then impacted into place. Cement was then pressurized into the distal aspect of the femur. A small amount of cement was placed into the intramedullary canal to help reduce bleeding. The femoral component was impacted into place. Any excess cement was removed. The knee was then brought into extension. Cement was pressurized into the undersurface of the patella. The patellar component was put into place and was held with a patella clamp. Any excess cement was removed. Once the cement had hardened the patellar clamp was removed. The knee was taken through a full range of motion. There was full flexion and extension. There was no instability with varus or valgus stress testing with the knee in flexion or extension. The patella tracked well with no medially directed force. The knee joint was irrigated with copious amounts of normal saline solution via pulse lavage. Any significant bleeding vessels were coagulated. The patient's left knee was placed onto a small bump. The arthrotomy was closed with #2 Ethibond [id number] interrupted suture as well as #1 Vicryl [id number] interrupted suture. The wound was once again irrigated. The subcutaneous tissues were closed with 0 Vicryl and 2-0 Vicryl interrupted sutures. The skin was closed with skin neel. Dry sterile dressing and Gabe bandages were placed over the patient's left knee. The patient was awake and alert. The patient was transferred to the recovery room in stable condition.
[2024-09-06 12:29] LABS: Glucose, Whole Blood 144 mg/dL (60-115)
--- NOTE | 2024-09-06 12:39 | PHA.MEDREC ---
Pharmacy Consult ? Medication Reconciliation Pharmacy has completed the medication reconciliation. Confirmed med rec done by nursing, matches pharmacy claims.
--- NOTE | 2024-09-06 13:02 | HO.PM.IMCN ---
History of Present Illness Data of Consult Service Date: 09/06/24 Primary Care Provider: Unknown Physician HPI Reason for consult: Medical management 78-year-old male with a past medical history hypertension, AAA, hyperlipidemia, hypothyroidism, type 2 diabetes, and GERD. Patient underwent a left total knee arthroplasty with Dr. Zurita today. Postoperatively he is awake and alert, no nausea or vomiting, his vitals are stable. Experiencing some postoperative pain, medications being adjusted per orthopedics. Patient's recent A1c 7.1. Patient is seen yearly by vascular for his AAA. Patient has GERD is well controlled with current medications. On exam he denies any shortness of breath, chest pain, abdominal pain or any other concerning symptoms. He has positive CMS to his left foot. His vitals are stable. Review of Systems Review of Systems: Denies any shortness of breath, chest pain, dizziness, lightheadedness, abdominal pain or discomfort, nausea vomiting or diarrhea PMFSH Medical History [place] (hard of hearing) GERD (gastroesophageal reflux disease) Neuropathy HTN (hypertension) Hypothyroidism Varicose vein of leg Osteoarthritis Dyslipidemia Diabetes mellitus AAA (abdominal aortic aneurysm) Surgical History Hx of bilateral cataract extraction Hx of appendectomy History of varicose vein procedure Hx of arthroscopy of right knee History of carpal tunnel release Hx of colonoscopy (2002) Social History Household Members: Family Housing: House Are you a primary direct care specialist to a significant other at home: No Do you presently have visiting nurse or other home services: No Comment: advised of trip hazard Patient Tobacco Use Status: Former Tobacco user Tobacco use type: Cigarette Years Smoked: 25 Use of substances other than those prescribed or required for medical reasons: No Have you been hit, kicked, punched, or otherwise hurt by someone within the past year? If so, by whom?: No Do you feel safe in your current relationship?: Yes Spiritual Healthcare Practices: no Religion Healthcare Practices: no Cultural Healthcare Practices: no Are you DNR?: Yes Advance Directives Information Provided: Yes (advised to bring copies DOS) Advance Directives on File: No Do you have a plan to hurt others: No Plan Poor oral hygiene: No Current occupational status: retired Current occupation: right handed Meds Allergies Allergy/AdvReac Type Severity Reaction Status Date / Time oxycodone Allergy Intermediate Nausea Verified 09/06/24 07:12 Active Medications: Current Medications Acetaminophen (Acetaminophen 325 Mg Tablet) 650 mg PO Q6H PRN PRN Reason: Pain, Mild 1-3,fever,headache Amlodipine Besylate (Amlodipine Besylate 5 Mg Tablet) 5 mg PO DAILY [facility]; Protocol Last Admin: 09/06/24 12:44 Dose: Not Given Aspirin (Aspirin 325 Mg Tablet) 325 mg PO BID [facility] Atorvastatin Calcium (Atorvastatin Calcium 40 Mg Tablet) 40 mg PO BEDTIME [facility] Celecoxib (Celecoxib 200 Mg Capsule) 200 mg PO BID [facility] Docusate Sodium (Docusate Sodium 100 Mg Capsule) 100 mg PO BID [facility] Gabapentin (Gabapentin 100 Mg Capsule) 100 mg PO BEDTIME [facility] Hydromorphone HCl (Hydromorphone Hcl 0.5 Mg/0.5 Ml Syringe) 0.25 mg IVPUSH Q4H PRN; Protocol PRN Reason: Pain, Severe (Pain Scale 7-10) Last Admin: 09/06/24 12:37 Dose: 0.25 mg Hydromorphone HCl (Hydromorphone Hcl 2 Mg Tablet) 1 mg PO Q4H PRN PRN Reason: Pain, Mild (Pain Scale 1-3) Hydromorphone HCl (Hydromorphone Hcl 2 Mg Tablet) 2 mg PO Q4H PRN PRN Reason: Pain, Moderate(Pain Scale 4-6) Lactated Ringer's (Lr) 1,000 mls @ 100 mls/hr IVCONT .Q10H [facility] Last Admin: 09/06/24 12:32 Dose: 100 mls/hr Vancomycin HCl 1,500 mg/ (Sodium Chloride) 500 mls @ 333.333 mls/hr IV POSTOP ONE Stop: 09/06/24 23:29 Cefazolin Sodium/Dextrose (Ancef) 2 gm in 50 mls @ 100 mls/hr IV Q8H [facility] Stop: 09/07/24 06:00 Levothyroxine Sodium (Levothyroxine Sodium 50 Mcg Tablet) 50 mcg PO DAILY [facility] Last Admin: 09/06/24 12:44 Dose: Not Given Losartan Potassium (Losartan Potassium 50 Mg Tablet) 100 mg PO DAILY [facility]; Protocol Last Admin: 09/06/24 12:44 Dose: Not Given Melatonin (Melatonin 3 Mg Tablet) 6 mg PO BEDTIME PRN PRN Reason: Insomnia Metformin HCl (Metformin Hcl Er 500 Mg Tab.Er.24h) 500 mg PO TIDAC [facility] Methocarbamol (Methocarbamol 500 Mg Tablet) 500 mg PO BEDTIME [facility] Sodium Chloride (0.9 % Sodium Chloride Flush 3 Ml Syringe) 3 ml IVFLUSH QSHIFT [facility] Last Admin: 09/06/24 12:45 Dose: Not Given Home Medications ?Medication ?Instructions ?Recorded ?Confirmed ?Last Taken ?Type amlodipine 5 mg tablet 5 mg PO QAM 08/06/24 09/02/24 09/06/24 History atorvastatin 40 mg tablet 40 mg PO BEDTIME 08/06/24 09/02/24 09/05/24 History gabapentin 300 mg capsule 300 mg PO TID 08/06/24 09/02/24 09/05/24 History levothyroxine 50 mcg tablet 50 mcg PO QAM 08/06/24 09/02/24 09/06/24 History losartan 100 mg tablet 100 mg PO QAM 08/06/24 09/02/24 09/05/24 History meloxicam 7.5 mg tablet 7.5 mg PO QAM 08/06/24 09/06/24 08/23/24 History metformin 500 mg tablet,extended 500 mg PO TID 08/06/24 09/02/24 09/05/24 History release 24 hr omeprazole 20 mg tablet,delayed 20 mg PO QAM 08/06/24 09/02/24 09/06/24 History release ascorbic acid (vitamin C) 500 mg 1,000 mg PO QAM 08/09/24 09/06/24 Unknown History chewable tablet (Vitamin C) Physical Exam Vital Signs and Narrative: Vital Signs: Last Vital Signs Temp 97.4 F 09/06/24 12:20 Pulse 65 09/06/24 12:20 Resp 18 09/06/24 12:20 BP 135/67 09/06/24 12:20 Pulse Ox 95 09/06/24 12:20 O2 Del Method Room Air 09/06/24 12:20 BMI result Body Mass Index 26.3 CONST: Alert and oriented, in NAD. Well nourished HEENT: Normocephalic, atraumatic, MMM, Eyes clear, Neck supple RESP: Lungs clear, RRR even and regular HEART:,RRR, S1, S2. No edema GI:Abdomen Soft NT, ND. + BS times four :Deferred SKIN: Warm dry and intact, no visible lesions or rashes. Dressing to left leg clean dry and intact, no strike through drainage. Musculoskeletal: Positive pedal pulses, color within normal limits, wiggles toes NEURO:CN II-XII Intact bilaterally, Sensation intact. Speech clear PSYCH: Normal affect Results Labs 09/03/24 12:50 09/03/24 12:50 Labs: Laboratory Results - last 24 hr 09/06/24 09/06/24 07:55 12:18 POC Glucose 150 H 144 H Assessment and Plan (1) Hyponatremia: Status: Acute Plan Status post left total knee arthroplasty Plan per Orthopedics [place] resuming Home Gabapentin Hypertension, hyperlipidemia Blood pressure is stable Resume her medications Type 2 diabetes Resume home medications Mild Hyponatremia Labs in am, urine osmo Thank you for allowing me to participate in the care of this patient. Will continue to follow. Please reconsult of any acute concerns or issues arise
--- NOTE | 2024-09-06 13:09 | PC.NURSE ---
Pt refused Oral Meds r/t unsure if he took them this AM.
--- NOTE | 2024-09-06 13:54 | PC.NURSE ---
Pt stated he had glasses from home, however there is no glasses on the Pre Op Belonging list.
--- NOTE | 2024-09-06 14:03 | PC.NURSE ---
Pt then states he found his glasses, they were hiding in a different bag.
--- NOTE | 2024-09-06 15:57 | PC.NURSE ---
Pt voided x 2
[2024-09-06 16:05] LABS: Glucose, Whole Blood 324 mg/dL (60-115)
[2024-09-06 20:03] LABS: Glucose, Whole Blood 270 mg/dL (60-115)
[2024-09-07 03:20] VITALS: BP 155/70; PULSE 65; RESP 16; TEMP 36.1; O2SAT 94
[2024-09-07 07:10] LABS: MANUAL DIFF FLAG NO
[2024-09-07 07:21] LABS: Hematocrit 29.2 % (42.0-52.0); Hemoglobin 10.4 g/dl (14.0-18.0); Imm Gran Abs Auto 0.05 X10*3/uL (0.00-0.03); Imm Gran Pct Auto 0.3 % (0.0-0.4); Lymphocytes Absolute Auto 1.3 X10*3/uL (1.2-4.9); Mean Corpuscular HGB Conc 35.6 g/dl (31.0-36.0); Mean Corpuscular Hemoglobin 30.3 pg (27.0-33.0); Mean Corpuscular Volume 85.1 fL (80.0-98.0); NRBC Abs Auto 0.000 X10*3/uL (0.0-0.012); NRBC Pct Auto 0.0 /100WBC (0.0-0.2); Platelet Count 226 X10*3/uL (160-400); Red Blood Count 3.43 X10*6/uL (4.60-5.80); White Blood Count 14.8 X10*3/uL (4.8-10.8)
[2024-09-07 07:24] VITALS: BP 133/70; PULSE 78; RESP 17; TEMP 36.4; O2SAT 94
[2024-09-07 07:26] LABS: Glucose, Whole Blood 144 mg/dL (60-115)
[2024-09-07 07:31] LABS: Anion Gap 11 (12-20); Blood Urea Nitrogen 15 mg/dL (9-16); Calcium 8.7 mg/dL (8.4-10.2); Carbon Dioxide 26 mmol/L (22-29); Chloride 102 mmol/L (96-108); Creatinine Clr Calc Pharmacy 66.5; Estimated Glomerular Filt Rate > 60; Potassium 3.9 mmol/L (3.3-5.1); Sodium 135 mmol/L (135-145)
[2024-09-07 07:32] LABS: Anion Gap 13 (12-20); Blood Urea Nitrogen 15 mg/dL (9-16); Calcium 8.7 mg/dL (8.4-10.2); Carbon Dioxide 25 mmol/L (22-29); Chloride 101 mmol/L (96-108); Creatinine Clr Calc Pharmacy 64.5; Estimated Glomerular Filt Rate > 60; Potassium 3.9 mmol/L (3.3-5.1); Sodium 135 mmol/L (135-145)
[2024-09-07 07:38] VITALS: BP 133/70
[2024-09-07 07:39] VITALS: BP 133/70
--- NOTE | 2024-09-07 11:13 | MHC.CM.PN ---
DX Osteoarthritis left knee S/P TKA Pt lives with his . He is independent with all functional mobility. He is using a cane. HCP + MOLST scanned into EMR. DP [facility] transitioning to CORE Out patient P.T Patients will provide transportation home. PCP Yomi Way task sent.
[2024-09-07 11:33] LABS: Glucose, Whole Blood 154 mg/dL (60-115)
[2024-09-07 12:00] VITALS: BP 132/66; PULSE 73; RESP 18; TEMP 36.5; O2SAT 96
--- NOTE | 2024-09-07 13:03 | PM.DS ---
DS: Providers Provider Date of Service: 09/07/24 Date of discharge: 09/07/24 Primary care physician: Unknown Physician Consults: 09/06/24 12:26 Consult to Hospitalist Routine Comment: Consulting Provider: [facility] [place] Hospitalists Reason For Exam: Diabetes management, ongoing medical management DS: Diagnosis Discharge Diagnosis (1) Status post total left knee replacement: Status: Acute DS: Summary Hospital Course Hospital Course: The patient underwent a successful left total knee arthroplasty on 09/06/[address] Zurita, was transferred to PACU and then to the floor to recover. During their stay, their vitals were stable, afebrile at 97.7 . Labs were unremarkable, H/H 10.4/29.2 . POD 1 he was started on ASA for DVT ppx, they also received Physical Therapy services twice a day. Physical therapy should include gait training, ROM to tolerance and quad strength. He is WBAT. Prior to discharge, his dressing was clean dry and intact. The Aquacel dressing should remain intact and dry at all times. Any concerns with the dressing, please contact orthopedic office. No showering. The plan is to be discharged home with VNA Time Attestation Discharge Coordination Time (in mins): 30 Quality: Safe Use of Opioids Does Pt have an Active Cancer Diagnosis on the Problem List?: No Quality: Stroke Does the patient have a stroke diagnosis?: No Physical Exam Vital Signs: Vital Signs: Last Vital Signs Temp 97.7 F 09/07/24 12:00 Pulse 73 09/07/24 12:00 Resp 18 09/07/24 12:00 BP 132/66 09/07/24 12:00 Pulse Ox 96 09/07/24 12:00 O2 Del Method Room Air 09/07/24 12:00 BMI result Body Mass Index 26.3 DS: Data Data Completed and Pending Pending studies at discharge: Pending at discharge 09/06/24 10:55 Surgical [PTH] Routine Labs on day of discharge: Laboratory Results - last 24 hr 09/06/24 09/06/24 09/06/24 15:06 16:01 19:58 WBC RBC Hgb Hct MCV MCH MCHC RDW Plt Count MPV Immature Gran % (Auto) Neut % (Auto) Lymph % (Auto) Ponce % (Auto) Eos % (Auto) Baso % (Auto) Lymph # (Auto) Ponce # (Auto) Eos # (Auto) Baso # (Auto) Abs Immat Gran (auto) Absolute Neuts (auto) Absolute Nucleated RBC Nucleated RBC % (auto) Sodium Potassium Chloride Carbon Dioxide Anion Gap BUN Creatinine Estim Creat Clear Calc Estimated GFR POC Glucose 324 H 270 H Random Glucose Fasting Glucose Calcium Urine Osmolality 418 09/07/24 09/07/24 09/07/24 06:56 06:56 06:56 WBC 14.8 H RBC 3.43 L D Hgb 10.4 L D Hct 29.2 L D MCV 85.1 MCH 30.3 MCHC 35.6 RDW 12.5 Plt Count 226 MPV 9.8 Immature Gran % (Auto) 0.3 Neut % (Auto) 81.1 H Lymph % (Auto) 8.9 L Ponce % (Auto) 9.3 Eos % (Auto) 0.2 Baso % (Auto) 0.2 Lymph # (Auto) 1.3 Ponce # (Auto) 1.4 H Eos # (Auto) 0.0 Baso # (Auto) 0.0 Abs Immat Gran (auto) 0.05 H Absolute Neuts (auto) 12.0 H Absolute Nucleated RBC 0.000 Nucleated RBC % (auto) 0.0 Sodium 135 135 Potassium 3.9 3.9 Chloride 101 Carbon Dioxide Anion Gap BUN Creatinine Estim Creat Clear Calc Estimated GFR POC Glucose Random Glucose Fasting Glucose Calcium Urine Osmolality 09/07/24 09/07/24 09/07/24 06:56 06:56 06:56 WBC RBC Hgb Hct MCV MCH MCHC RDW Plt Count MPV Immature Gran % (Auto) Neut % (Auto) Lymph % (Auto) Ponce % (Auto) Eos % (Auto) Baso % (Auto) Lymph # (Auto) Ponce # (Auto) Eos # (Auto) Baso # (Auto) Abs Immat Gran (auto) Absolute Neuts (auto) Absolute Nucleated RBC Nucleated RBC % (auto) Sodium Potassium Chloride 102 Carbon Dioxide 25 26 Anion Gap 13 11 L BUN 15 Creatinine Estim Creat Clear Calc Estimated GFR POC Glucose Random Glucose Fasting Glucose Calcium Urine Osmolality 09/07/24 09/07/24 09/07/24 06:56 06:56 06:56 WBC RBC Hgb Hct MCV MCH MCHC RDW Plt Count MPV Immature Gran % (Auto) Neut % (Auto) Lymph % (Auto) Ponce % (Auto) Eos % (Auto) Baso % (Auto) Lymph # (Auto) Ponce # (Auto) Eos # (Auto) Baso # (Auto) Abs Immat Gran (auto) Absolute Neuts (auto) Absolute Nucleated RBC Nucleated RBC % (auto) Sodium Potassium Chloride Carbon Dioxide Anion Gap BUN 15 Creatinine 0.99 0.96 Estim Creat Clear Calc 64.5 66.5 Estimated GFR > 60 POC Glucose Random Glucose Fasting Glucose Calcium Urine Osmolality 09/07/24 09/07/24 09/07/24 06:56 06:56 07:19 WBC RBC Hgb Hct MCV MCH MCHC RDW Plt Count MPV Immature Gran % (Auto) Neut % (Auto) Lymph % (Auto) Ponce % (Auto) Eos % (Auto) Baso % (Auto) Lymph # (Auto) Ponce # (Auto) Eos # (Auto) Baso # (Auto) Abs Immat Gran (auto) Absolute Neuts (auto) Absolute Nucleated RBC Nucleated RBC % (auto) Sodium Potassium Chloride Carbon Dioxide Anion Gap BUN Creatinine Estim Creat Clear Calc Estimated GFR > 60 POC Glucose 144 H Random Glucose 141 H Fasting Glucose 140 H Calcium 8.7 8.7 Urine Osmolality 09/07/24 11:18 WBC RBC Hgb Hct MCV MCH MCHC RDW Plt Count MPV Immature Gran % (Auto) Neut % (Auto) Lymph % (Auto) Ponce % (Auto) Eos % (Auto) Baso % (Auto) Lymph # (Auto) Ponce # (Auto) Eos # (Auto) Baso # (Auto) Abs Immat Gran (auto) Absolute Neuts (auto) Absolute Nucleated RBC Nucleated RBC % (auto) Sodium Potassium Chloride Carbon Dioxide Anion Gap BUN Creatinine Estim Creat Clear Calc Estimated GFR POC Glucose 154 H Random Glucose Fasting Glucose Calcium Urine Osmolality Discharge Plan Discharge Patient Disposition: Home Health Service Referrals: Annabella Matson PA-C [Physician Director Building, Orthopedics] - 09/23/24 Referral Note: 09/23/24 14:00 [facility] [place] Orthopedic Surgeons Annabella Matson PA-C Physician,Unknown J [Primary Care Provider, Medical] - 1 Week Discharge Medications: No Action (DME) walker Misc See Rx Instructions .ROUTE .MEDSUPPLY Qty: 1 0RF Rx Instructions: Folding front wheeled walker ascorbic acid (vitamin C) [Vitamin C] 500 mg Tablet,Chewable 1,000 mg PO QAM amlodipine 5 mg tablet 5 mg PO QAM atorvastatin 40 mg tablet 40 mg PO BEDTIME gabapentin 300 mg capsule 300 mg PO TID levothyroxine 50 mcg tablet 50 mcg PO QAM losartan 100 mg tablet 100 mg PO QAM meloxicam 7.5 mg tablet 7.5 mg PO QAM metformin 500 mg tablet extended release 24 hr 500 mg PO TID omeprazole 20 mg tablet,delayed release (DR/EC) 20 mg PO QAM Discharge Orders: Discharge Order (Routine); Ordered 09/07/24 Ordered By: Luis Fernando Hall Diet: Regular diet Activity on Discharge: Use cane or walker Activity Restrictions/Additional Instructions: Physical Therapy for Total knee arthroplasty: WBAT, gait training, ROM 0-12, quad strength Limit stair climbing No showering, no tub bath-keep dressing clean, dry and intact No driving x6 weeks Continue Aspirin twice a day x 6 weeks Follow up with [facility] [place] Orthopedics in 2 weeks Print Language: Kinyarwanda
--- NOTE | 2024-09-07 13:06 | P.F2F_ITS ---
Service Date Service Date: 09/07/24 Encounter Date of encounter: 09/07/24 Reasons for Services Signs and symptoms assessed: Weakness, poor balance, poor gait mechanics Reason for physical therapy: home safety and mobility, therapeutic exercises, restore joint function, gait/transfer training, ADL training and energy conservation Reason for occupational therapy: home safety and mobility, therapeutic exercises, restore joint function, gait/transfer training, ADL training and energy conservation Overseeing Care: Silvio Zurita Homebound: Leaving the home is medically contraindicated at this time without the asist of a device and/or another person due th the listed conditions above and below. Reason homebound: unsteady gait / fall risk, pain with ambulation, poor balance / fall risk and unable to drive Homebound supporting statement: .face Certification: Based on the above findings, I certify that this patient is confined to the home and needs intermittent assisted care, physical therapy and/or speech therapy, or continues to need occupational therapy. The patient is under my care, and I have initiated the establishment of the plan of care. The patient will be followed by a physician who will periodically review the plan of care. Time Spent With Patient Time: Total time managing care of this patient today ____ minutes.
--- NOTE | 2024-09-07 14:13 | HO.POSTANES ---
Post Anesthesia Evaluation Post Anesthesia Evaluation Date of Service: 09/07/24 Vital Signs: Vital Signs Temp Pulse Resp BP Pulse Ox O2 Del Method 09/07/24 12:00 97.7 F 73 18 132/66 96 Room Air 09/07/24 07:39 133/70 09/07/24 07:38 133/70 09/07/24 07:24 97.6 F 78 17 133/70 94 Room Air 09/07/24 03:20 97.0 F 65 16 155/70 H 94 Room Air Anesthesia: Monitored and Spinal Mental Status: Awake Pain Control: Satisfactory Nausea/Vomiting: None Hydration: Adequate Anesthesia-Related Issues: No Anes. Related Issues
== END 2024-09-07 14:12 | disposition home health service (06) ==
LOC: HO.SSS 07:03 → HO.S3 12:01
PROVIDERS: Nurse Practitioner Family; Physician Assistant; PCP Internal Medicine; Visit Provider Orthopaedic Surgery
PROC: (CPT 27447; principal; 2024-09-06 09:00)
DX: M17.12 Unilateral primary osteoarthritis, left knee (principal); G89.18 Other acute postprocedural pain; I10 Essential (primary) hypertension; I71.40 Abdominal aortic aneurysm, without rupture, unspecified; E11.9 Type 2 diabetes mellitus without complications; G62.9 Polyneuropathy, unspecified; E87.1 Hypo-osmolality and hyponatremia; E03.9 Hypothyroidism, unspecified; E78.5 Hyperlipidemia, unspecified; K21.9 Gastro-esophageal reflux disease without esophagitis; H91.90 Unspecified hearing loss, unspecified ear; Z79.899 Other long term (current) drug therapy; Z79.84 Long term (current) use of oral hypoglycemic drugs; Z88.5 Allergy status to narcotic agent; Z98.890 Other specified postprocedural states; Z87.891 Personal history of nicotine dependence
CPT/HCPCS: 27447; 36415; 80048; 82947; 83935; 85025; 85027; 86850; 86900; 86901; 87640; 87641; 88305; 88311; 97116; 97161; 97530; C1776; J0131; J0665; J0690; J1100; J1171; J2003; J2250; J2371; J2704; J2795; J3370; J3371; J7120

== ENCOUNTER → 2024-09-06 07:02 | Outpatient (BNV) | payer MEDICARE, SELFPAY | PROVIDERS: Visit Provider Nurse Practitioner Family | DX: E87.1 Hypo-osmolality and hyponatremia (principal) | CPT/HCPCS: 99222 ==

== ENCOUNTER → 2024-09-06 07:02 | Outpatient (BNV) | payer MEDICARE, SELFPAY | PROVIDERS: Visit Provider Orthopaedic Surgery | DX: Z47.1 Aftercare following joint replacement surgery (principal); Z96.652 Presence of left artificial knee joint | CPT/HCPCS: 27447; 99024; G0180 ==

== ENCOUNTER 2024-09-23 11:20 | Outpatient (REF) | payer MEDICARE, SELFPAY ==
--- NOTE | ~2024-09-23 | XR_ITS ---
EXAMINATION: XR KNEE, LEFT CLINICAL INFORMATION: M25.569 - Pain in unspecified knee COMPARISON: 03/31/2024. TECHNIQUE: AP view bilateral knees standing, lateral and patellofemoral views left knee. FINDINGS: Right Knee: No fracture or dislocation. Moderate medial compartment joint space narrowing. Spurring of the tibial spines. Normal soft tissues. Left Knee: Total left knee arthroplasty with patellar resurfacing. Tibial, femoral components are well seated, intact, and anatomical alignment. There is no periprosthetic fracture or lucency to suggest complication. There is ventral soft tissue swelling with ventral skin neel present. There are vascular calcifications in the soft tissues as well. XR/XR knee LT 3V IMPRESSION: 1. Total LEFT knee arthroplasty without complication. 2. RIGHT knee demonstrating moderate medial compartment osteoarthrosis. Electronically signed by: Edin Barrientos MD 09/23/2024 02:31 PM EDT
--- OUTSIDE RECORDS SUMMARY | 2024-09-24 11:47 | XMS_ITS | Clinical Summary ---
Author Organization [facility]ia [facility] Address [address] [place] [address] Care Team Providers Care Gold Leaf Printer Name Role Phone Suraj Duran MD Primary Care Provider +1- [phone] Allergies No known active allergies Medications Medication [...] age to complete this topic Care Teams Gold Leaf Printer Relationship Specialty Start Date End Date Suraj Duran MD [address] [facility] [address] [place] [address] PCP - General Internal Medicine 06/16/18
--- OUTSIDE RECORDS SUMMARY | 2024-09-24 11:47 | XMS_ITS | Encounter Summary ---
Author Organization [facility] Address [address] [place] [address] Care Team Providers Care Peoplesoft Business Analyst Name Role Phone Melvin Lara MD Primary Care Provider [phone]- [phone] Encounter Details Date Type Department Care Team (Latest Contact Info) Description 01/14/2024 Lab Requisition [facility] - Main Lab 299 [facility] [place] [phone] Melvin Lara MD 299 [facility] [address] [place] [address] Type 2 diabetes mellitus without complications (CMS/HCC [...] Description 11/10/2024 8:30 AM EDT Ancillary Procedure [facility] - [facility] 101 300 [facility] 101 [place] [phone] 12/24/2024 8:30 AM EDT Office Visit Vascular Surgery - [place] 300 [facility] 210 [place] [phone] Elieser Haines MD 300 [facility] [address] [place] [address] documented as of this encounter Procedures Procedure [...] greater than 65 years. Test performed at [facility], [address] , [place] [address] Ani Solano MD, PhD - Rack Maker Blood Venous blood specimen / Unknown 01/14/2024 11:30 AM EST 01/16/2024 11:20 AM EST Melvin Lara MD LAB BLOOD ORDERABLES Final Result [facility] [address] [place] [address] * (ABNORMAL) Hemoglobin A1c (01/14/2024 11:30 AM EST) Hemoglobin A1C 6.7(H) <6.5 % LAB CHEMISTRY METHOD 01/16/2024 7:09 PM EST [facility] Mean Bld Glu Estim. 146 mg/dL LAB CHEMISTRY METHOD 01/16/2024 7:09 PM EST [facility] Blood Venous blood specimen / Unknown 01/14/2024 11:30 AM EST 01/16/2024 11:20 AM EST Melvin Lara MD LAB BLOOD ORDERABLES Final Result [facility] [address] [place] [address], [place] [phone] documented in this encounter Visit Diagnoses Diagnosis Type 2 diabetes mellitus without complications (CMS/HCC V24, CMS/HCC V28) documented in this encounter Care Teams Peoplesoft Business Analyst Relationship Specialty Start Date End Date Melvin Lara MD [address] [place] [address] PCP - General Internal Medicine 01/21/24 documented as of this encounter
== END 2024-09-23 11:21 | disposition home or self-care (01) ==
LOC: HO.HOSX 11:20
PROVIDERS: Visit Provider Physician Assistant
DX: M25.562 Pain in left knee (principal); Z79.01 Long term (current) use of anticoagulants; Z79.82 Long term (current) use of aspirin; Z79.899 Other long term (current) drug therapy; Z79.84 Long term (current) use of oral hypoglycemic drugs; Z96.652 Presence of left artificial knee joint
CPT/HCPCS: 73562; 99212

== ENCOUNTER 2024-09-23 13:52 | Outpatient (AMB) | payer MEDICARE, SELFPAY ==
--- NOTE | 2024-09-23 14:10 | MHC.OFFVIS ---
Intake Visit Reasons: 2WK PO: L TKA w/ 09/06/24 Intake Note: Mani is a 78 year old male who presents today for his first post operative visit s/p left total knee arthroplasty 09/06/24 Patient reports some discomfort and tightness but no pain . Next Appt. w/ on 10/13/24 @ 08:45AM Allergies oxycodone Allergy (Intermediate, Verified 09/23/24 14:15) Nausea Medication List - Last Reconciled 09/23/24 by Rossy Bender, RN acetaminophen 650 mg (2 x 325 mg) PO Q6H PRN 30 days amlodipine 5 mg PO QAM ascorbic acid (vitamin C) (Vitamin C) 1,000 mg PO QAM aspirin 325 mg PO BID 42 days atorvastatin 40 mg PO BEDTIME celecoxib 200 mg PO BID 30 days gabapentin 300 mg PO TID levothyroxine 50 mcg PO QAM losartan 100 mg PO QAM meloxicam 7.5 mg PO QAM metformin ER 500 mg PO TID methocarbamol 500 mg PO BEDTIME 7 days omeprazole 20 mg PO QAM walker Folding front wheeled walker HPI HPI 2WK PO: L TKA w/ 09/06/24: Details: Mr. Apodaca is a 78-year-old male who presents to the office today status post left total knee arthroplasty performed by Dr. Zurita on 09/06/2024. Patient is using a cane to assist ambulation. He has stopped taking all pain medications. He reports some soreness but overall is doing very well. He has 1 more physical therapy session with the [facility] and then will transition to outpatient physical therapy. He will need an outpatient physical therapy prescription. [facility] Medical History [place] (hard of hearing) GERD (gastroesophageal reflux disease) Neuropathy HTN (hypertension) Hypothyroidism Varicose vein of leg Osteoarthritis Dyslipidemia Diabetes mellitus AAA (abdominal aortic aneurysm) Surgical History Hx of bilateral cataract extraction Hx of appendectomy History of varicose vein procedure Hx of arthroscopy of right knee History of carpal tunnel release Hx of colonoscopy (2002) Social History Household Members: Family Housing: House Are you a primary chronic care nurse to a significant other at home: No Do you presently have visiting nurse or other home services: No Comment: advised of trip hazard Patient Tobacco Use Status: Former Tobacco user Tobacco use type: Cigarette Years Smoked: 25 service: Yes Current occupational status: retired Current occupation: right handed Review of Systems Const All systems reviewed & are unremarkable except as noted in HPI and below Physical Exam Const General: cooperative, healthy appearing and no acute distress Resp Effort & Inspection: normal respiratory effort and able to speak in complete sentences Cardio Rate: regular rate Peripheral pulses: Peripheral pulses 2+ throughout GI Palpation (GI): Soft to palpation Skin Lesions: no lesions Rashes: no rashes Extrem Other: Left knee incision site is clean dry and intact. [place] intact. No surrounding erythema or drainage. No signs of infection. Range of motion is 10-90 degrees. NVI. Assessment & Plan Assessment & Plan (1) Status post total left knee replacement: Code(s): Z96.652 - Presence of left artificial knee joint Category: Surgical Plan While in the office today, neel were removed and Steri-Strips were applied. I provided the patient with an outpatient physical therapy prescription. He would like to go outside of the [facility] system. He will continue anticoagulation for 6 weeks postoperatively for DVT prophylaxis. He will follow up in [address] Zurita, sooner if needed. X-rays of the left knee which were obtained while in the office today and were reviewed by me, Annabella Matson PA-C, revealed intact left knee arthroplasty with satisfactory alignment. Orders: Orders XR knee LT 3V Today M25.569 - Pain in unspecified knee PT Evaluation and Treatment Today Z96.652 - Presence of left artificial knee joint Coding Level of Care Code Global (62268) Diagnoses Status post total left knee replacement Z96.652
--- OUTSIDE RECORDS SUMMARY | 2024-09-23 14:35 | XMS_ITS | Encounter Summary ---
Author Organization [facility] Address [address] [place] [address] Care Team Providers Care Supply Chain Generalist Name Role Phone Melvin Lara MD Primary Care Provider [phone]- [phone] Encounter Details Date Type Department Care Team (Latest Contact Info) Description 01/14/2024 Lab Requisition [facility] - Main Lab 299 [facility] [place] [phone] Melvin Lara MD 299 [facility] [address] [place] [address] Type 2 diabetes mellitus without complications (CMS/HCC [...] Description 11/10/2024 8:30 AM EDT Ancillary Procedure [facility] - [facility] 101 300 [facility] 101 [place] [phone] 12/24/2024 8:30 AM EDT Office Visit Vascular Surgery - [place] 300 [facility] 210 [place] [phone] Elieser Haines MD 300 [facility] 210 [place] [address] documented as of this encounter Procedures Procedure [...] greater than 65 years. Test performed at [facility], [address] , [place] [address] Ani Solano MD, PhD - Forester Aide Blood Venous blood specimen / Unknown 01/14/2024 11:30 AM EST 01/16/2024 11:20 AM EST Melvin Lara MD LAB BLOOD ORDERABLES Final Result [facility] [address] [place] [address] * (ABNORMAL) Hemoglobin A1c (01/14/2024 11:30 AM EST) Hemoglobin A1C 6.7(H) <6.5 % LAB CHEMISTRY METHOD 01/16/2024 7:09 PM EST [facility] Mean Bld Glu Estim. 146 mg/dL LAB CHEMISTRY METHOD 01/16/2024 7:09 PM EST [facility] Blood Venous blood specimen / Unknown 01/14/2024 11:30 AM EST 01/16/2024 11:20 AM EST Melvin Lara MD LAB BLOOD ORDERABLES Final Result [facility] [address] [place] [address], [place] [phone] documented in this encounter Visit Diagnoses Diagnosis Type 2 diabetes mellitus without complications (CMS/HCC V24, CMS/HCC V28) documented in this encounter Care Teams Supply Chain Generalist Relationship Specialty Start Date End Date Melvin Lara MD [address] [place] [address] PCP - General Internal Medicine 01/21/24 documented as of this encounter
--- OUTSIDE RECORDS SUMMARY | 2024-09-23 14:35 | XMS_ITS | Data Portability ---
Author Organization [facility] Luann Siddiqui [facility] [place] Address [address] [place] [address] Care Team Providers Care Cooker Meal Name Role Phone ALEX BACA Primary Care Provider [phone] Assessment Encounter Date Assessment Date Assessment LastModified [...] agrees with above-noted plan he can take [id number] pain medication for pain suppression. This is [...] findings at length with the patient today. We discussed the nature and etiology of this problem along with current treatment options. We discussed the expected course and outcomes and what to expect. We also discussed risks and benefits. All of their questions were answered today, and there was exhibited understanding and comprehension of all that was discussed. Time Spent: 10 minutes were spent reviewing previous imaging and charting. 10 minutes were spent obtaining patient history. 5 minutes were spent on physical exam. 5minutes were spent explaining diagnosis and assessment. Today's [...] more view 2022 023 [email or web address] [facility], [address], [place], [address], 3 12:06:13 XR, shoulder, 2 or more view 2022 023 [email or web address] [facility], [address], [place], [address], 3 12:06:13 Medication Orders Kenalog 40 mg/mL suspension for injection 2022 023 [email or web address] [facility], [address] [place], [address], 3 12:06:13 lidocaine (PF) 10 mg/mL (1 %) injection solution 2022 023 [email or web address] [facility], [address] [place], [address], 3 12:06:13 Patient TargetsNo targets recorded. Patient InstructionsNo instructions recorded. Reason for Referral None Reported. Procedures Surgical History Date Name Laterality Status Provider Name and Address Organization Details Recorded Time 3 Shoulder Joint/Bursa Asp & Inj completed JOCE SMITH PA-C [address] [place] [address],[facility] [address], [place], [address], [place] [facility] 12/26/2022 09:36:01 procedure on appendix completed [facility] 12/26/2022 09:43:56 Imaging Results None recorded. Procedure Notes None recorded. Medical Equipment None Reported. Allergies Allergen ID Allergen Name Allergen Category Reaction Reaction Severity Criticality Documentation Date Start Date Code Code System Note Provider Name and Address Organization Details Recorded Time 92 acetamino phen / oxycodone medicatio n nausea Not available Not available 12/26/2022 59162 3 [facility], [place] [facility] 3 08:59:46 Medications Name Sig Start [...] Not Available Not Available Not Avai lable Vitals Date Recorded Body height Body mass index (BMI) Body weight Provider Name and Address Organization Details Last Updated DateTime 12/26/2022 177.8 cm 24.4 kg/m2 [address]129[address] [place] [facility], 12/26/2022 09:38:47 Social History None recorded. Functional Status Question Answer Note LastModified by Organizat ion Details LastModified Time Do you use any illicit or recreational drugs? No Information not available 12/26/2022 Do you or have you ever used any other forms of tobacco or nicotine? No Information not available 12/26/2022 What is your level of alcohol consumption? None Information not available 12/26/2022 Mental Status None recorded. Family History Relationship [...] SNOMED-CT Code Diagnosis ICD10 Code Diagnosis Note [address] [place] [address] [facility] [address] [facility] [address] [place] [address] 12/26/2022 08:38:13 12/26/2022 09:35:04 Pain of right shoulder joint [id number] M25.511 Pain of le ft shoulder joint [id number] 1690173 M25.512 Health Concerns Section Related Observation LastModified by Organization Detai ls LastModified Time None Recorded Concern Status LastModified by Organization Details LastModified Time None Recorded Advance Directives Directive None Recorded Payers Insurance Date Sequence Insurance Name Policy Number Policy Nguyen Covered Member ID Nguyne Member ID Guarantor Name 12/03/2022 1 [facility] (MEDICARE REPLACEMENT/A DVANTAGE - HMO) [id number] Mani Kong Constanza [id number] Mani Apodaca Notes Date Note Type Note [...] Here for evaluation treatment. JOCE SMITH PA-C [address] [place] [address],[place] [address], [place], [address], [place] [facility] 12/26/2022 10:31:32
--- OUTSIDE RECORDS SUMMARY | 2024-09-23 14:35 | XMS_ITS | Clinical Summary ---
Author Organization [facility] Address [address] [place] [address] Care Team Providers Care Cost Estimating Engineer Name Role Phone Suraj Duran MD Primary Care Provider [phone]- [phone] Allergies No known active allergies Medications Medication [...] 1-dose 75+ series) 2021 Influenza Vaccine (#1) 2024 8, 01/05/2017, 01/23/2016, Additional history exists Hepatitis B Vaccines Aged Out No long er eligible based on patient's age to complete this topic RSV Ped < 20 months Aged Out No longe r eligible based on patient's age to complete this topic Care Teams Cost Estimating Engineer Relationship Specialty Start Date End Date Suraj Duran MD [address] [facility] [address] [place] [address] PCP - General Internal Medicine 06/16/18
--- OUTSIDE RECORDS SUMMARY | 2024-09-23 14:36 | XMS_ITS ---
Author Name [facility] Organization Unknown History of Medication Use Medication Directions Dispensed Refills Start Date End Date Stat us Kenalog 40 mg/mL suspension for injection Take 1 mL by injection route. 12/26/2022 active lidocaine (PF) 10 mg/mL (1 %) injection solution Take 2 mL by injection route. 12/26/2022 active lisinopril 10 mg tablet 12/26/2022 completed benzonatate 100 mg capsule TAKE 1 CAPSULE BY MOUTH 3 TIMES DAILY NEEDED FOR COUGH FOR UP TO 7 DAYS. active levothyroxine 50 mcg tablet TAKE 1 TABLET BY MOUTH EVERY DAY active losartan 25 mg tablet active Allergies Allergen Reaction Severity Comment Documented Date Source Statu s PERCOCET NAUSEA ENS_AONECT Encounters Encounter Type Encounter Reason Primary Diagnosis Location Date Ambulatory [facility] [place] 02/07/2023 Ambulatory [facility] [place] 12/26/2022 Ambulatory [facility] [place] 12/26/2022 Ambulatory [facility] [place] 12/19/2022 Ambulatory [facility] [place] 12/19/2022 Ambulatory [facility] [place] 12/03/2022 Ambulatory [facility] [place] 12/03/2022 Ambulatory [facility] [place] 12/03/2022 Ambulatory [facility] [place] 12/03/2022
== END 2024-09-23 15:02 | disposition home or self-care (01) ==
LOC: HO.HOS 13:52
PROVIDERS: PCP Internal Medicine; Visit Provider Physician Assistant
DX: Z96.652 Presence of left artificial knee joint (principal)
CPT/HCPCS: 99024

== ENCOUNTER → 2024-09-23 14:02 | Outpatient (BNV) | payer MEDICARE, SELFPAY | PROVIDERS: Visit Provider Radiology Diagnostic Radiology | DX: M17.11 Unilateral primary osteoarthritis, right knee (principal); Z96.641 Presence of right artificial hip joint | CPT/HCPCS: 73562 ==

== ENCOUNTER 2024-10-13 08:39 | Outpatient (AMB) | payer MEDICARE, SELFPAY ==
--- NOTE | 2024-10-13 08:45 | MHC.OFFVIS ---
Vital Signs 10/13/24 08:50 Height 5 ft 9 in Weight 171 lb BMI 25.2 Intake Visit Reasons: 6WK PO: L TKA w/ 09/06/24 Intake Note: Mani is a 78 year old male who presents with complaints of mild to moderate discomfort in his left knee after undergoing left total knee replacement surgery on 09/06/2024. He continues to go to formal physical therapy. He is no longer taking narcotics for his discomfort. He denies any fevers or chills. He is no longer walking with an assistive device. Allergies oxycodone Allergy (Intermediate, Verified 10/13/24 08:49) Nausea Medication List - Last Reconciled 10/13/24 by Silvio Zurita MD acetaminophen 650 mg (2 x 325 mg) PO Q6H PRN 30 days amlodipine 5 mg PO QAM ascorbic acid (vitamin C) (Vitamin C) 1,000 mg PO QAM aspirin 325 mg PO BID 42 days atorvastatin 40 mg PO BEDTIME celecoxib 200 mg PO BID 30 days gabapentin 300 mg PO TID levothyroxine 50 mcg PO QAM losartan 100 mg PO QAM metformin ER 500 mg PO TID methocarbamol 500 mg PO BEDTIME 7 days omeprazole 20 mg PO QAM walker Folding front wheeled walker [facility] Medical History [place] (hard of hearing) GERD (gastroesophageal reflux disease) Neuropathy HTN (hypertension) Hypothyroidism Varicose vein of leg Osteoarthritis Dyslipidemia Diabetes mellitus AAA (abdominal aortic aneurysm) Surgical History Hx of bilateral cataract extraction Hx of appendectomy History of varicose vein procedure Hx of arthroscopy of right knee History of carpal tunnel release Hx of colonoscopy (2002) Social History Household Members: Family Housing: House Are you a primary pet care worker to a significant other at home: No Do you presently have visiting nurse or other home services: No Comment: advised of trip hazard Patient Tobacco Use Status: Former Tobacco user Tobacco use type: Cigarette Years Smoked: 25 service: Yes Current occupational status: retired Current occupation: right handed Physical Exam Vital Signs: BMI result Body Mass Index 25.2 Extrem Other: Left knee examination shows that the surgical incision is well healed, no erythema, full active extension and flexion to 125 degrees, his patella tracks well Assessment & Plan Assessment & Plan (1) Left knee pain: Code(s): M25.562 - Pain in left knee Category: Medical Plan Mr. Apodaca continues to do very well after undergoing left total knee replacement surgery on 09/06/2024. He will continue going to formal physical therapy for now. He will gradually transition to a home exercise program. He does know to take antibiotics before any dental work. He will contact me prior to his follow-up appointment in 2 months should any questions or concerns arise. Feel free to call me at any time should questions regarding his orthopedic management arise. Coding Level of Care Code Global (11274) Diagnoses Left knee pain M25.562
[2024-10-13 08:50] VITALS: BMI 25.2
--- OUTSIDE RECORDS SUMMARY | 2024-10-13 08:51 | XMS_ITS | Clinical Summary ---
Author Organization [facility] Address [address] [place] [address] Care Team Providers Care Inspector And Unloader Name Role Phone Suraj Duran MD Primary Care Provider +1- [phone] Allergies No known active allergies Medications Medication [...] age to complete this topic Care Teams Inspector And Unloader Relationship Specialty Start Date End Date Suraj Duran MD [address] [facility] [address] [place] [address] PCP - General Internal Medicine 06/16/18
--- OUTSIDE RECORDS SUMMARY | 2024-10-13 08:51 | XMS_ITS | Encounter Summary ---
Author Organization [facility] Address [address] [place] [address] Care Team Providers Care Sample Washer Name Role Phone Melvin Lara MD Primary Care Provider +1- [phone] Encounter Details Date Type Department Care Team (Latest Contact Info) Description 01/14/2024 Lab Requisition [facility] - Main Lab 299 [facility] [place] [phone] Melvin Lara MD 299 [facility] 322 [place] [address] Type 2 diabetes mellitus without complications (CMS/HCC [...] Description 11/10/2024 8:30 AM EDT Ancillary Procedure [facility] - [facility] 101 300 [facility] 101 [place] [phone] 12/24/2024 8:30 AM EDT Office Visit Vascular Surgery - [place] 300 [facility] 210 [place] [phone] Elieser Haines MD 300 [facility] [address] [place] [address] documented as of this encounter Procedures Procedure [...] than 65 years. Test performed at [facility], [address] , [place] [address] Ani Solano MD, PhD - Internet Marketing Executive Blood Venous blood specimen / Unknown 01/14/2024 11:30 AM EST 01/16/2024 11:20 AM EST Melvin Lara MD LAB BLOOD ORDERABLES Final Result [facility] [address] [place] [address] * (ABNORMAL) Hemoglobin A1c (01/14/2024 11:30 AM EST) Hemoglobin A1C 6.7(H) <6.5 % LAB CHEMISTRY METHOD 01/16/2024 7:09 PM EST [facility] Mean Bld Glu Estim. 146 mg/dL LAB CHEMISTRY METHOD 01/16/2024 7:09 PM EST [facility] Blood Venous blood specimen / Unknown 01/14/2024 11:30 AM EST 01/16/2024 11:20 AM EST Melvin Lara MD LAB BLOOD ORDERABLES Final Result [facility] [address] [place] [address], [place] [phone] documented in this encounter Visit Diagnoses Diagnosis Type 2 diabetes mellitus without complications (CMS/HCC V24, CMS/HCC V28) documented in this encounter Care Teams Sample Washer Relationship Specialty Start Date End Date Melvin Lara MD [address] [place] [address] PCP - General Internal Medicine 01/21/24 documented as of this encounter
== END 2024-10-13 09:03 | disposition home or self-care (01) ==
LOC: HO.HOS 08:39
PROVIDERS: Visit Provider Orthopaedic Surgery
DX: M25.562 Pain in left knee (principal)
CPT/HCPCS: 99024

== ENCOUNTER → 2024-10-13 08:39 | Outpatient (BNVA) | payer MEDICARE, SELFPAY | PROVIDERS: Visit Provider Orthopaedic Surgery | DX: Z47.1 Aftercare following joint replacement surgery (principal); M25.562 Pain in left knee; Z96.652 Presence of left artificial knee joint | CPT/HCPCS: 99212 ==

== ENCOUNTER 2024-11-18 09:42 | Outpatient (AMB) | payer MEDICARE, SELFPAY ==
--- NOTE | 2024-11-18 09:49 | MHC.PC.OV ---
Vital Signs 11/18/24 09:53 Height 5 ft 9 in Weight 173 lb BMI 25.5 BP 116/60 Blood Pressure Location Lt brachial Position Sitting Pulse 96 Pulse Source Pulse Oximeter Temp 98.5 F Temp Source Oral Pulse Oximetry (%) 94 Oxygen Delivery Method Room Air Intake Visit Reasons: MACHINE ZIPPER TRIMMER Med refill/ok per pam/pt has list Allergies oxycodone Allergy (Intermediate, Verified 11/18/24 09:58) Nausea PFSH Medical History [place] (hard of hearing) GERD (gastroesophageal reflux disease) Neuropathy HTN (hypertension) Hypothyroidism Varicose vein of leg Osteoarthritis Dyslipidemia Diabetes mellitus AAA (abdominal aortic aneurysm) Surgical History Hx of bilateral cataract extraction Hx of appendectomy History of varicose vein procedure Hx of arthroscopy of right knee History of carpal tunnel release Hx of colonoscopy (2002) Social History Household Members: Family Housing: House Are you a primary pulmonary care nurse to a significant other at home: No Do you presently have visiting nurse or other home services: No Comment: advised of trip hazard Patient Tobacco Use Status: Former Tobacco user Tobacco use type: Cigarette Years Smoked: 25 service: Yes Current occupational status: retired Current occupation: right handed Questionnaire Thrive Questionnaire Date Thrive assessed: 09/07/24 Physical exam (Primary Care) Vital Signs: Last Vital Signs Temp 98.5 F 11/18/24 09:53 Pulse 96 11/18/24 09:53 BP 116/60 11/18/24 09:53 Pulse Ox 94 11/18/24 09:53 Oxygen Delivery Method Room Air 11/18/24 09:53 BMI result Body Mass Index 25.5 Tobacco/Smoking Status: Tobacco use Status Patient Tobacco Use Status Former Tobacco user 11/18/24 09:59 Tobacco use type Cigarette 11/18/24 09:49 Thrive Assessment: Date of Thrive Assessment Date Thrive assessed 09/07/24 11/18/24 09:49 Coding Assessment & Plan Assessment & Plan Medications: New levothyroxine 50 mcg PO QAM 90 tabs 0RF amlodipine 5 mg PO QAM 90 tabs 0RF Changed From gabapentin 300 mg PO TID To gabapentin 300 mg PO TID 270 caps 0RF 90 days From metformin ER 500 mg PO TID To metformin ER 500 mg PO TID 270 tabs 0RF 90 days
--- NOTE | 2024-11-18 09:52 | MHC.OFFWIV ---
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 - He has a new PCP and his appointment is in December. - He is out of 4 of his medications and needs refills. - Hypothyroidism: The patient is currently on levothyroxine 50 mg daily. - Hypertension: The patient is prescribed Norvasc (amlodipine) 5 mg. - Type 2 Diabetes Mellitus: The patient is taking metformin 500 mg three times a day. - Neuropathic Pain: The patient is on gabapentin 300 mg three times a day. Physical Exam General: Cooperative, healthy appearing, comfortable, no acute distress and well developed Respiratory: Normal respiratory effort and able to speak in complete sentences. Clear to auscultation bilaterally Cardiovascular: Regular rate and rhythm. Normal S1 and S2 Patient was informed and verbally consented to the use of an ambient scribe for clinic note documentation during this visit. [facility] Medical History [place] (hard of hearing) GERD (gastroesophageal reflux disease) Neuropathy HTN (hypertension) Hypothyroidism Varicose vein of leg Osteoarthritis Dyslipidemia Diabetes mellitus AAA (abdominal aortic aneurysm) Surgical History Hx of bilateral cataract extraction Hx of appendectomy History of varicose vein procedure Hx of arthroscopy of right knee History of carpal tunnel release Hx of colonoscopy (2002) Social History Household Members: Family Housing: House Are you a primary health care sanitary technician to a significant other at home: No Do you presently have visiting nurse or other home services: No Comment: advised of trip hazard Patient Tobacco Use Status: Former Tobacco user Tobacco use type: Cigarette Years Smoked: 25 service: Yes Current occupational status: retired Current occupation: right handed Review of Systems Const All systems reviewed & are unremarkable except as noted in HPI and below Physical Exam Vital Signs: Last Vital Signs Temp 98.5 F 11/18/24 09:53 Pulse 96 11/18/24 09:53 BP 116/60 11/18/24 09:53 Pulse Ox 94 11/18/24 09:53 Oxygen Delivery Method Room Air 11/18/24 09:53 BMI result Body Mass Index 25.5 Assessment & Plan Assessment & Plan (1) Medication refill: Code(s): Z76.0 - Encounter for issue of repeat prescription Plan Will refill his medications for 90 days has an appt with his new PCP upcoming plan - continue with your medications - follow up with PCP Medications: New levothyroxine 50 mcg PO QAM 90 tabs 0RF amlodipine 5 mg PO QAM 90 tabs 0RF Changed From gabapentin 300 mg PO TID To gabapentin 300 mg PO TID 270 caps 0RF 90 days From metformin ER 500 mg PO TID To metformin ER 500 mg PO TID 270 tabs 0RF 90 days Coding Level of Care Code Est Pt Level 3 (85145) Diagnoses Medication refill Z76.0
[2024-11-18 09:53] VITALS: BP 116/60; PULSE 96; TEMP 36.9; O2SAT 94; BMI 25.5
--- OUTSIDE RECORDS SUMMARY | 2024-11-18 11:24 | XMS_ITS | Clinical Summary ---
Author Organization [facility] Address [address] [place] [phone] Phone Care Team Providers Care Economic Developer Name Role Phone Melvin Lara MD Primary Care Provider +1- [phone] Surgical History Surgery Date Site/Laterality Comments CARPAL TUNNEL RELEASE 06/09/1997 Left PROCEDURE: HISTORICAL CARPAL TUNNEL REL KNEE SURGERY 1988 Right PROCEDURE: HISTORICAL KNEE SURGERY; COMMENT: Dr. Lester APPENDECTOMY PROCEDURE: HISTORICAL APPENDECTOMY CATARACT EXTRACTION 01/2023 PROCEDURE: HISTORICAL CATARACT REMOVAL Medical History Medical History Date Comments Cataracts, bilateral 02/22/2019 DX:Cataract s, bilateral; COMMENT: [facility]. Appt in May 2019 Osteoarthritis 02/22/2019 DX:Osteoarthriti s History of varicose vein ligation 02/22/2019 DX:History of varicose vein ligation; COMMENT: Dr. Templeton Abdominal aortic aneurysm (A AA) 3.0 cm to 5.5 cm in diameter in male ([facility] V24) 02/22/2019 DX:Abdominal aortic aneurysm (AAA) 3.0 cm to 5.5 cm in diameter in male (HCC); COMMENT: 2014-3.1cm 2016 3.4 CM 2018 normal Diabetic neuropathy ([facility]/HCC V24, CMS/[facility] V28) 03/31/2019 DX:Diabetic neuropathy (HCC) Hypothyroidism 02/22/2019 DX:Hypothyroidis m Dyslipidemia 03/31/2019 DX:Dyslipidemia Type 2 diabetes mellitus wit h vascular disease (CMS/HCC V24, [facility] V28) 03/31/2019 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) Erectile dysfunction 02/22/2019 DX:Erectile dysfunction Type 2 diabetes mellitus wit h cataract ([facility] V24, [facility]/HCC V28) 03/31/2019 DX:Type 2 diabetes mellitus with [...] Care Team (Late st Contact Info) Description 12/22/2024 7:00 AM EDT Ancillary Procedure [facility] - [facility] [address] [place] [address] 01/21/2025 11:30 AM EST Office Visit Vascular Surgery - [place] [address] [place] [address] Elieser Haines MD [address] [place] [phone] Health Maintenance Due Date Last Done Comments Diabetes: Annual Foot Exam 1955 Diabetes: Annual Retina Eye Exam 1955 RSV Immunization Adult Patients (1 - 1-dose 75+ series) 2021 Cholesterol Screening (Lipid Panel) 02/09/2022 Falls Risk Assessment 02/09/2022 Hepatitis C Screening 02/09/2022 Medicare Annual Wellness Visit 02/09/2022 Social Influencers of Health Screening 02/09/2022 Diabetes: Annual Urine Albumin-Creatinine Ratio (uACR) 02/20/2022 Depression Screening 03/10/2024 Diabetes: Blood Sugar Control Test (HGBA1C) 07/13/2024 01/14/2024, 08/22/2023 Diabetes: Annual GFR (Glomerular Filtration Rate) 08/21/2024 08/22/2023 Hypertension/CHF/CAD Annual BMP Blood Test 08/21/2024 08/22/2023 COVID-19 Vaccine ( season) 2024 12/11/2023, 12/27/2022, 11/24/2022, Additional history exists Influenza Vaccine (#1) 2024 , 01/03/2023, 11/19/2022, Additional history exists DTaP,Tdap,and Td Vaccines (4 - Td or Tdap) 05/08/2033 05/09/2023, 01/18/2013, 05/22/2007 Hepatitis A Vaccines Aged Out 01/22/2010 No long er eligible based on patient's age to complete this topic Pneumococcal Vaccine: 50+ Years Completed 01/24/2020, 09/04/2015, 01/27/2008 Zoster Vaccines Completed 09/20/2022, 04/24/2022 HIB Vaccines Aged Out No longer eligi [...] LAB CHEMISTRY METHOD 01/16/2024 7:09 PM EST [facility] Mean Bld Glu Estim. 146 mg/dL LAB CHEMISTRY METHOD 01/16/2024 7:09 PM EST [facility] Blood Venous blood specimen / Unknown 01/14/2024 11:30 AM EST 01/16/2024 11:20 AM EST us Melvin Lara MD LAB BLOOD ORDERABLES Final Result [facility] [address] [place] [address], from Last 3 Months or Most Recently Relevant to Health Maintenance Insurance [employer] MEDICARE [employer] MEDICARE Care Teams Economic Developer Relationship Specialty Start Date End Date Melvin Lara MD [address] [place] [address] PCP - General Internal Medicine 01/21/24
--- OUTSIDE RECORDS SUMMARY | 2024-11-18 11:24 | XMS_ITS | Encounter Summary ---
Author Organization [facility] Address [address] [place] [address] Care Team Providers Care Child Welfare Social Worker Name Role Phone Melvin Lara MD Primary Care Provider +1- [phone] Encounter Details Date Type Department Care Team (Latest Contact Info) Description 01/14/2024 Lab Requisition [facility] [address] [facility] [place] [phone] Melvin Lara MD 299 [facility] [address] [place] [address] Type 2 diabetes mellitus without complications (CMS/HCC [...] Description 12/22/2024 7:00 AM EDT Ancillary Procedure [facility] - [facility] [address] [facility] [address] [place] [phone] 01/21/2025 11:30 AM EST Office Visit Vascular Surgery - [place] [address] [facility] [address] [place] [phone] Elieser Haines MD [address] [place] [phone] documented as of this encounter Procedures Procedure [...] greater than 65 years. Test performed at [facility], [address] , [place] [address] Ani Solano MD, PhD - Pharmacy Tech Customer Service Blood Venous blood specimen / Unknown 01/14/2024 11:30 AM EST 01/16/2024 11:20 AM EST Melvin Lara MD LAB BLOOD ORDERABLES Final Result [facility] [address] [place] [address] * (ABNORMAL) Hemoglobin A1c (01/14/2024 11:30 AM EST) Hemoglobin A1C 6.7(H) <6.5 % LAB CHEMISTRY METHOD 01/16/2024 7:09 PM EST [facility] Mean Bld Glu Estim. 146 mg/dL LAB CHEMISTRY METHOD 01/16/2024 7:09 PM EST [facility] Blood Venous blood specimen / Unknown 01/14/2024 11:30 AM EST 01/16/2024 11:20 AM EST Melvin Lara MD LAB BLOOD ORDERABLES Final Result [facility] [address] [place] [address], [place] [phone] documented in this encounter Visit Diagnoses Diagnosis Type 2 diabetes mellitus without complications (CMS/HCC V24, CMS/HCC V28) documented in this encounter Care Teams Child Welfare Social Worker Relationship Specialty Start Date End Date Melvin Lara MD [address] [place] [id number] PCP - General Internal Medicine 01/21/24 documented as of this encounter
--- OUTSIDE RECORDS SUMMARY | 2024-11-18 11:24 | XMS_ITS | Clinical Summary ---
Author Organization [facility] Address [address] [place] [address] Care Team Providers Care Cover Mat Machine Operator Name Role Phone Suraj Duran MD Primary Care Provider +1- [phone] Allergies No known active allergies Medications Medication [...] age to complete this topic Care Teams Cover Mat Machine Operator Relationship Specialty Start Date End Date Suraj Duran MD [address] [facility] [address] [place] [address] PCP - General Internal Medicine 06/16/18
== END 2024-11-18 10:33 | disposition home or self-care (01) ==
PROVIDERS: Visit Provider Physician Assistant Medical
DX: Z76.0 Encounter for issue of repeat prescription (principal)

== ENCOUNTER → 2024-11-18 09:42 | Outpatient (BNVA) | payer MEDICARE, SELFPAY | PROVIDERS: Visit Provider Physician Assistant Medical | DX: Z76.0 Encounter for issue of repeat prescription (principal); E11.9 Type 2 diabetes mellitus without complications; I10 Essential (primary) hypertension; Z79.899 Other long term (current) drug therapy | CPT/HCPCS: 99212 ==

== ENCOUNTER 2024-12-15 08:15 | Outpatient (AMB) | payer MEDICARE, SELFPAY ==
--- NOTE | 2024-12-15 08:20 | A.OFFVIS_ITS ---
Vital Signs 12/15/24 08:22 Height 5 ft 10 in Weight 170 lb BMI 24.4 Intake Visit Reasons: OV- L TKA w/DR 09/06/24 follow up Intake Note: Mani is a 78 year old male who presents with complaints of mild intermittent discomfort in his left knee after undergoing left total knee replacement surgery on 09/06/2024. He has completed formal physical therapy. He continues with his home stretching program. He denies any fevers or chills. Allergies oxycodone Allergy (Intermediate, Verified 12/15/24 08:23) Nausea Medication List - Last Reconciled 12/15/24 by Silvio Zurita MD acetaminophen 650 mg (2 x 325 mg) PO Q6H PRN 30 days amlodipine 5 mg PO QAM aspirin 325 mg PO BID 42 days atorvastatin 40 mg PO BEDTIME celecoxib 200 mg PO BID 30 days gabapentin 300 mg PO TID 90 days hydromorphone mg PO levothyroxine 50 mcg PO QAM losartan 100 mg PO QAM metformin ER 500 mg PO TID 90 days methocarbamol 500 mg PO BEDTIME 7 days multivitamin 1 tab PO DAILY omeprazole 20 mg PO QAM sennosides-docusate sodium 8.6-50 mg 1 tab-cap PO BID PRN walker Folding front wheeled walker PFSH Medical History [place] (hard of hearing) GERD (gastroesophageal reflux disease) Neuropathy HTN (hypertension) Hypothyroidism Varicose vein of leg Osteoarthritis Dyslipidemia Diabetes mellitus AAA (abdominal aortic aneurysm) Surgical History Hx of bilateral cataract extraction Hx of appendectomy History of varicose vein procedure Hx of arthroscopy of right knee History of carpal tunnel release Hx of colonoscopy (2002) Social History Household Members: Family Housing: House Are you a primary hearing healthcare practitioner to a significant other at home: No Do you presently have visiting nurse or other home services: No Comment: advised of trip hazard Patient Tobacco Use Status: Former Tobacco user Tobacco use type: Cigarette Years Smoked: 25 service: Yes Current occupational status: retired Current occupation: right handed Physical Exam Vital Signs: BMI result Body Mass Index 24.4 Const Other: Well-nourished well-developed very friendly male awake alert and oriented x3 in no acute distress Extrem Other: Left knee examination shows that the surgical incision is well healed, no erythema, full active extension and flexion to 115 degrees, his patella tracks well Assessment & Plan Assessment & Plan (1) Left knee pain: Code(s): M25.562 - Pain in left knee Category: Medical Plan Mr. Apodaca continues to do well after undergoing left total knee replacement surgery on 09/06/2024. He will continue with his home exercise program. He does know to take antibiotics before any dental work. Will contact me prior to his follow-up appointment in the spring should any questions or concerns arise. Feel free to call me should any questions regarding his orthopedic management arise. I spent 21 minutes in reviewing the patient's records and imaging studies, seeing the patient and documenting in the medical record. Coding Level of Care Code Est Pt Level 3 (68769) Complex EM visit Add On G2211 Diagnoses Left knee pain M25.562
[2024-12-15 08:22] VITALS: BMI 24.4
--- OUTSIDE RECORDS SUMMARY | 2024-12-15 08:27 | XMS_ITS | Clinical Summary ---
Author Organization [facility] Address [address] [place] [address] Care Team Providers Care Room Service Manager Name Role Phone Suraj Duran MD Primary Care Provider +1- [phone] Allergies No known active allergies Medications Medication [...] age to complete this topic Care Teams Room Service Manager Relationship Specialty Start Date End Date Suraj Duran MD [address] [facility] [address] [place] [address] PCP - General Internal Medicine 06/16/18
--- OUTSIDE RECORDS SUMMARY | 2024-12-15 08:27 | XMS_ITS | Encounter Summary ---
Author Organization [facility] Address [address] [place] [address] Care Team Providers Care Senior Statistician Name Role Phone Melvin Lara MD Primary Care Provider +1- [phone] Encounter Details Date Type Department Care Team (Latest Contact Info) Description 01/14/2024 Lab Requisition [facility] [address] [facility] [place] [phone] Melvin Lara MD [address] [facility] [address] [place] [address] Type 2 diabetes mellitus without complications (CMS/HCC [...] Description 12/22/2024 7:00 AM EDT Ancillary Procedure [facility] - [facility] [address] [facility] [address] [place] [phone] 01/21/2025 11:30 AM EST Office Visit Vascular Surgery - [place] [address] [facility] [address] [place] [phone] Elieser Haines MD [address] [place] [phone] documented as of this encounter Procedures Procedure [...] greater than 65 years. Test performed at [facility], [address] , [place] [address] Ani Solano MD, PhD - Breastfeeding Educator Blood Venous blood specimen / Unknown 01/14/2024 11:30 AM EST 01/16/2024 11:20 AM EST Melvin Lara MD LAB BLOOD ORDERABLES Final Result [facility] [address] [place] [address] * (ABNORMAL) Hemoglobin A1c (01/14/2024 11:30 AM EST) Hemoglobin A1C 6.7(H) <6.5 % LAB CHEMISTRY METHOD 01/16/2024 7:09 PM EST [facility] Mean Bld Glu Estim. 146 mg/dL LAB CHEMISTRY METHOD 01/16/2024 7:09 PM EST [facility] Blood Venous blood specimen / Unknown 01/14/2024 11:30 AM EST 01/16/2024 11:20 AM EST Melvin Lara MD LAB BLOOD ORDERABLES Final Result [facility] [address] [place] [address], [place] [phone] documented in this encounter Visit Diagnoses Diagnosis Type 2 diabetes mellitus without complications (CMS/HCC V24, CMS/HCC V28) documented in this encounter Care Teams Senior Statistician Relationship Specialty Start Date End Date Melvin Lara MD [address] [place] [id number] PCP - General Internal Medicine 01/21/24 documented as of this encounter
--- OUTSIDE RECORDS SUMMARY | 2024-12-15 08:28 | XMS_ITS | Clinical Summary ---
Author Organization [facility] Address [address] [place] [phone] Phone Care Team Providers Care Developer Architect Name Role Phone Melvin Lara MD Primary Care Provider +1- [phone] Surgical History Surgery Date Site/Laterality Comments CARPAL TUNNEL RELEASE 06/09/1997 Left PROCEDURE: HISTORICAL CARPAL TUNNEL REL KNEE SURGERY 1988 Right PROCEDURE: HISTORICAL KNEE SURGERY; COMMENT: Dr. Lester APPENDECTOMY PROCEDURE: HISTORICAL APPENDECTOMY CATARACT EXTRACTION 01/2023 PROCEDURE: HISTORICAL CATARACT REMOVAL Medical History Medical History Date Comments Cataracts, bilateral 02/22/2019 DX:Cataract s, bilateral; COMMENT: [facility]. Appt in May 2019 Osteoarthritis 02/22/2019 DX:Osteoarthriti s History of varicose vein ligation 02/22/2019 DX:History of varicose vein ligation; COMMENT: Dr. Templeton Abdominal aortic aneurysm (A AA) 3.0 cm to 5.5 cm in diameter in male ([facility] V24) 02/22/2019 DX:Abdominal aortic aneurysm (AAA) 3.0 cm to 5.5 cm in diameter in male (HCC); COMMENT: 2014-3.1cm 2016 3.4 CM 2018 normal Diabetic neuropathy ([facility]/HCC V24, CMS/[facility] V28) 03/31/2019 DX:Diabetic neuropathy (HCC) Hypothyroidism 02/22/2019 DX:Hypothyroidis m Dyslipidemia 03/31/2019 DX:Dyslipidemia Type 2 diabetes mellitus wit h vascular disease (CMS/HCC V24, [facility] V28) 03/31/2019 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 - [facility] [address] [place] [address] 01/21/2025 11:30 AM EST Office Visit Vascular Surgery - [place] [address] [place] [address] Elieser Haines MD [address] [place] [phone] Health Maintenance Due Date Last Done Comments [...] LAB CHEMISTRY METHOD 01/16/2024 7:09 PM EST [facility] Mean Bld Glu Estim. 146 mg/dL LAB CHEMISTRY METHOD 01/16/2024 7:09 PM EST [facility] Blood Venous blood specimen / Unknown 01/14/2024 11:30 AM EST 01/16/2024 11:20 AM EST us Melvin Lara MD LAB BLOOD ORDERABLES Final Result [facility] [address] [place] [address], from Last 3 Months or Most Recently Relevant to Health Maintenance Insurance [employer] MEDICARE [employer] MEDICARE Care Teams Developer Architect Relationship Specialty Start Date End Date Melvin Lara MD [address] [place] [address] PCP - General Internal Medicine 01/21/24
== END 2024-12-15 08:33 | disposition home or self-care (01) ==
LOC: HO.HOS 08:16
PROVIDERS: Visit Provider Orthopaedic Surgery
DX: M25.562 Pain in left knee (principal)
CPT/HCPCS: 99213; G2211

== ENCOUNTER → 2024-12-15 08:15 | Outpatient (BNVA) | payer MEDICARE, SELFPAY | PROVIDERS: Visit Provider Orthopaedic Surgery | DX: M25.562 Pain in left knee (principal); Z96.652 Presence of left artificial knee joint | CPT/HCPCS: 99212 ==

== ENCOUNTER 2024-12-30 08:38 | Outpatient (AMB) | payer MEDICARE, SELFPAY ==
--- NOTE | 2024-12-30 08:53 | A.OFFPC_ITS ---
Vital Signs 12/30/24 09:28 Height 5 ft 10 in Weight 176 lb BMI 25.3 BP 134/71 Blood Pressure Location Lt brachial Position Sitting Respiration 16 Pulse 75 Pulse Source Pulse Oximeter Temp 97.9 F Temp Source Oral Pulse Oximetry (%) 96 Oxygen Delivery Method Room Air Intake Visit Reasons: Diabetes/hypertension Intake Note: patient here for new patient visit/ DM and HTN Manager Of Case Required: No Allergies oxycodone Allergy (Intermediate, Verified 12/30/24 10:02) Nausea Medication List - Last Reconciled 12/30/24 by Dalila Ulloa, [facility]- acetaminophen 650 mg (2 x 325 mg) PO Q6H PRN 30 days amlodipine 5 mg PO QAM aspirin 325 mg PO BID 42 days atorvastatin 40 mg PO BEDTIME celecoxib 200 mg PO BID 30 days gabapentin 300 mg PO TID 90 days hydromorphone mg PO levothyroxine 50 mcg PO QAM losartan 100 mg PO QAM metformin ER 500 mg PO TID 90 days methocarbamol 500 mg PO BEDTIME 7 days multivitamin 1 tab PO DAILY omeprazole 20 mg PO QAM sennosides-docusate sodium 8.6-50 mg 1 tab-cap PO BID PRN walker Folding front wheeled walker Tobacco use date assessed: 12/30/24 Fall risk assessment: No Falls in past year Last assessed Fall Risk: 12/30/24 Dental Screening Dental Screen Date: 12/30/24 Did you have a dental visit in the last 12 months?: Yes Did you have a dental problem in the last 6 months where you did not have access to dental care?: No Was dental information given to patient?: Patient has dentist HPI HPI Comments History of Present Illness Details 79 y/o M with Hypothyroid, DM2 with comp lications, neuropathy, HTN, GERD, HLD, AAA, former smoker, DM retinopathy, ED, Hiatal hernia, CAD SurgHx: appy, right knee arthroscopy, CTS release, bilat cataract, varicose veins, L TKR, cataract bilat FHx SocHx: Health Maintenance: See scanned preventative medicine assessment with personalized health plan and screening schedule. Colon: 2002 Vaccines: UTD Flu 12/2024 AAA screen EKG: [place] of Care: [facility] [place] Last exam 2024 * [facility] visit 11/2024, imaging done has fu appt in the next few weeks Thu Jimenez - HUYEN History of Present Illness The patient is a 79-year-old male presenting to [facility]. Previous PCP records patterson reviewed Type 2 Diabetes Mellitus with Peripheral Neuropathy: - History of type 2 diabetes with periph eral neuropathy; A1c at 6.8%. - Controlled with metformin three times daily. Hypertension: - Managed with amlodipine and losartan. Coronary Artery Disease: - Receives aspirin and atorvastatin. Hypothyroidism: - Treated with levothyroxine. Abdominal Aortic Aneurysm (AAA): - Stable AAA with vascular specialist fo llow-up. Postoperative Status, Total Knee Replacement, L 08/2024 @ [facility]: - Underwent total knee replacement recen tly; in rehabilitation. - Anticipates full recovery in 6-12 rodolfo hs. PPI use: Was started on omeprazole by his primary care provider at the time that he was taking meloxicam for his left knee prior to replacement. He has never had GERD symptoms does not have Keys's. Review of Systems - Musculoskeletal: Reports knee pain fro m recent surgery; acknowledges expected recovery timeline. - Endocrine: Denies symptoms of thyroid dysfunction. - Cardiovascular: Denies chest pain or r ecent acute cardiac symptoms. - Gastrointestinal: Reports using omepra zole; considering cessation. - Neurological: Denies new issues aside from neuropathy. - Allergic/Immunological: Reports allerg y to oxycodone. - Ophthalmologic: Denies eye complicatio ns from diabetes; recent cataract surgery. - Vascular: Denies issues related to AAA ; follow-up scheduled. Physical Exam General: Well developed, well nourished, in no acute distress. Appears stated age. Head: Normocephalic, atraumatic. Eyes: Pupils are equal, round and reactive to light and accommodation. Conjunctivae are clear. Vision grossly normal. Lungs: Clear to auscultation bilaterally. No rales, rhonchi or wheeze noted. Good air flow in all mcleod. Heart: Regular rate and rhythm. No murmurs, click, rubs or gallops are noted. Musculoskeletal: Joints are nontender, without swelling, redness, or effusions. Pulses: Peripheral pulses are equal and palpable bilaterally. Varicose veins BLE Extremities: No clubbing, cyanosis nor edema is noted. Psych: Mood and affect appropriate. Discussion Notes I discussed with the patient his current medical conditions and ongoing management plan. We reviewed the importance of maintaining good glycemic control, as evidenced by his recent A1c level of 6.8%. I addressed his medication regimen, confirming current prescriptions and decided to take over prescription management. We discussed the potential tapering off of omeprazole, given its previous long-term use aligns with the cessation of meloxicam. I emphasized monitoring for digestive symptoms should he choose to stop. The patient is encouraged to continue rehabilitation therapy post knee replacement, with understanding that full recovery may take up to a year. Lastly, I recommended a follow-up on his stable AAA and advised he provide my contact details to his vascular specialist for coordinated care. Patient was given time to ask questions. All questions were answered to their satisfaction. Assessment and Plan 1. Type 2 Diabetes Mellitus with Periphe ral Neuropathy - Continue metformin; monitor A1c. 2. Hypertension - Maintain regimen of amlodipine and los damion. 3. Coronary Artery Disease - Continue aspirin and atorvastatin 4. Hypothyroidism - Continue levothyroxine. 5. Abdominal Aortic Aneurysm (AAA) - Follow-up with vascular specialist. 6. Postoperative Status, Total Knee Repl acement L - Continue rehabilitation; monitor recov kacy. 7. PPI taper: Advised to stop taking th e omeprazole 20 mg daily. Monitor for symptoms of reflux. If he develops reflux in the 1st 2 weeks advised to continue to hold. Do not think that he will need long-term. Can discuss at future visits. Patient Instructions - Continue taking all prescribed medicat ions as directed. - Follow up with your vascular specialis t as scheduled. - Begin taper or stop omeprazole, monito r for symptoms. - Maintain physical therapy sessions twi ce a week. - Schedule your labs one week before you r next appointment in April. - Avoid oxycodone due to allergy. - Monitor and report any new symptoms or concerns. - RTO Feb w labs 1 week before for AWV sooner PRN Consent Patient was informed and verbally consented to the use of an ambient scribe for clinic note documentation during this visit. Total time spent caring for the patient today was 45 minutes. This includes time spent before the visit reviewing the chart, time spent during the visit, and time spent after the visit on documentation, reviewing laboratory results, diagnostic imaging, medications, performing a medically necessary evaluation, counseling on diagnoses, care coordination, ordering appropriate tests, ordering appropriate medications, review of tests performed by other providers, reporting test results with the patient, communication with other healthcare providers. PFSH Medical History (Updated 12/30/24 @ 10:20 by CON Smith) AAA (abdominal aortic aneurysm) Arthritis Arthritis of left knee Diabetes mellitus Dyslipidemia GERD (gastroesophageal reflux disease) [place] (hard of hearing) HTN (hypertension) Hyponatremia Hypothyroidism Neuropathy Osteoarthritis Varicose vein of leg Surgical History (Updated 12/30/24 @ 10:11 by CON Smith) History of carpal tunnel release History of left knee replacement History of varicose vein procedure Hx of appendectomy Hx of arthroscopy of right knee Hx of bilateral cataract extraction Hx of colonoscopy (2002) Family History (Updated 12/30/24 @ 09:39 by SIM Galvin) Maternal Uncle Alcohol abuse Brother High blood pressure Mother Diabetes FH: mental illness Maternal Grandmother Cardiovascular disease Sister Breast cancer Social History Household Members: Family Housing: House Are you a primary child caregiver to a significant other at home: No Do you presently have visiting nurse or other home services: No Comment: advised of trip hazard Patient Tobacco Use Status: Former Tobacco user Tobacco use type: Cigarette Years Smoked: 25 e-Cigarette/Vaping Use: Never Used Second Hand Smoke Exposure: No service: Yes Current occupational status: retired Current occupation: right handed Current occupational exposures/hazards: No Cognitive needs: No Hearing needs: Yes Vision needs: Yes Questionnaire PHQ-9 Over the last 2 weeks, how often have you been bothered by any of the following problems? 1. Little interest or pleasure in doing things: not at all 2. Feeling down, depressed, or hopeless: not at all 3. Trouble falling or staying asleep, or sleeping too much: not at all 4. Feeling tired or having little energy: not at all 5. Poor appetite or overeating: not at all 6. Feeling bad about yourself - or that you are a failure or have let yourself or your family down: not at all 7. Trouble concentrating on things, such as reading the newspaper or watching television: not at all 8. Moving or speaking so slowly that other people could have noticed. Or the opposite - being so fidgety or restless that you have been moving around a lot more than usual: not at all 9. Thoughts that you would be better off or of hurting yourself in some way: not at all Total score: 0 Depression Screening Interpretation: Negative Depression Screening Done: Yes 66106 - PHQ-9 Billing: Yes Source: Developed by Drs. Yasmany Johnston, Joy Lord, Tank Cortes and colleagues, with an educational padmaja from [email or web address]. Thrive Questionnaire Date Thrive assessed: 12/30/24 I am a: Patient What is your living situation today?: I have a steady place to live Within the past 12 months, did the food you bought not last and you didn't have the money to get more?: Never true Within the past 12 months, did you worry whether your food would run out before you got money to buy more?: Never true Do you have trouble paying for medicines?: No Do you have trouble getting transportation to medical appointments?: No Do you have trouble paying your heating and electricity bill?: No Do you have trouble taking care of your child, family member or friend?: No Do you have trouble with day-to-day activities such as bathing, preparing meals, shopping, managing finances, etc.?: No Are you currently unemployed and looking for a job?: No Are you interested in more education?: I choose not to answer this question Please select the resources that you would like help with: None Currently or been in a relationship where the following occur: No concerns reported THRIVE Score: 0 AUDIT C Alcohol Use Questionnaire (AUDIT-C) 1. How often do you have a drink containing alcohol?: Never 3. How often do you have six or more drinks on one occasion?: Never Total Score: 0 Score Reviewed/Action Taken: Yes OLINDA-7 AMB Questionnaire OLINDA-7 Date OLINDA - 7 assessed: 12/30/24 Feeling nervous, anxious, or on edge: 0 = Not at all Not being able to stop or control worryin = Not at all Worrying too much about different things: 0 = Not at all Trouble relaxin = Not at all Being so restless that it is hard to sit still: 0 = Not at all Becoming easily annoyed or irritable: 0 = Not at all Feeling afraid as if something awful might happen: 0 = Not at all Total OLINDA-7 score (0-4 normal; 5-9 mild; 10-14 moderate; 15-21 severe): 0 Source: Developed by Drs. Yasmany Johnston, Joy Lord, Tank Cortes and colleagues, with an educational padmaja from [email or web address]. OLINDA-7 Assessment Billing OLINDA-7 Assessment Tool: OLINDA-7 Assessment 14920 Physical exam (Primary Care) Vital Signs: Last Vital Signs Temp 97.9 F 12/30/24 09:28 Pulse 75 12/30/24 09:28 Resp 16 12/30/24 09:28 BP 134/71 12/30/24 09:28 Pulse Ox 96 12/30/24 09:28 Oxygen Delivery Method Room Air 12/30/24 09:28 BMI result Body Mass Index 25.3 Tobacco/Smoking Status: Tobacco use Status Tobacco use date assessed 12/30/24 12/30/24 09:39 Patient Tobacco Use Status Former Tobacco user 12/30/24 08:54 Tobacco use type Cigarette 12/30/24 08:54 e-Cigarette/Vaping Use Never Used 12/30/24 09:39 PHQ-9: PHQ-9 Score PHQ-9: Total score 0 12/30/24 09:44 Depression Screening Interpretation: Negative Thrive Assessment: Date of Thrive Assessment Date Thrive assessed 12/30/24 12/30/24 08:54 Currently or been in a relationship where the following occur: No concerns reported Results AMB Hemoglobin A1c AMB Hemoglobin A1c 6.8 % Last Edit by SIM Galvin on 12/30/24 09:44 Results Reviewed Results Reviewed: Laboratory Last Values Hgb A1c (Clinic) 6.8 % (4.0-6.0) H 12/30/24 09:41 Coding Level of Care Code New Pt Level 4 (71608) Complex EM visit Add On G2211 Diagnoses Encounter to establish care Z76.89 Diabetes mellitus with complication E11.8 Diabetic neuropathy E11.40 Diabetes mellitus type: type 2 DM retinopathy E11.319 Coronary artery disease involving [place] coronary artery of [place] heart without angina pectoris I25.10 Coronary Disease-Associated Artery/Lesion type: [place] artery [place] vs. transplanted heart: [place] heart Associated angina: without angina Abdominal aortic aneurysm (AAA) without rupture, unspecified part I71.40 Abdominal aorta location: unspecified Presence of rupture: without rupture Acquired hypothyroidism E03.9 Hypothyroidism type: acquired Primary hypertension I10 Hypertension type: primary hypertension Current use of proton pump inhibitor Z79.899 Additional Codes OLINDA-7 Assessment Billing - OLINDA-7 Assessment Tool: OLINDA-7 Assessment 74465 ([id number]) PHQ-9 - 86069 - PHQ-9 Billing: Yes ([id number]) Assessment & Plan Assessment & Plan (1) Encounter to establish care: Code(s): Z76.89 - Persons encountering health services in other specified circumstances (2) Diabetes mellitus with complication: Code(s): E11.8 - Type 2 diabetes mellitus with unspecified complications Category: Medical (3) Diabetic neuropathy: Code(s): E11.40 - Type 2 diabetes mellitus with diabetic neuropathy, unspecified Category: Medical Qualifiers: Diabetes mellitus type: type 2 (4) DM retinopathy: Code(s): E11.319 - Type 2 diabetes mellitus with unspecified diabetic retinopathy without macular edema Category: Medical (5) CAD (coronary artery disease): Code(s): I25.10 - Atherosclerotic heart disease of [place] coronary artery without angina pectoris Category: Medical Qualifiers: Coronary Disease-Associated Artery/Lesion type: [place] artery [place] vs. transplanted heart: [place] heart Associated angina: without angina Qualified Code(s): I25.10 - Atherosclerotic heart disease of [place] coronary artery without angina pectoris (6) AAA (abdominal aortic aneurysm): Comment: follows w/Vascular at [place] [facility] yearly-stable Code(s): I71.40 - Abdominal aortic aneurysm, without rupture, unspecified Category: Medical Qualifiers: Abdominal aorta location: unspecified Presence of rupture: without rupture Qualified Code(s): I71.40 - Abdominal aortic aneurysm, without rupture, unspecified (7) Hypothyroidism: Code(s): E03.9 - Hypothyroidism, unspecified Category: Medical Qualifiers: Hypothyroidism type: acquired Qualified Code(s): E03.9 - Hypothyroidism, unspecified (8) HTN (hypertension): Code(s): I10 - Essential (primary) hypertension Category: Medical Qualifiers: Hypertension type: primary hypertension Qualified Code(s): I10 - Essential (primary) hypertension (9) Current use of proton pump inhibitor: Code(s): Z79.899 - Other liquid sugar fortifier (current) drug therapy Category: Medical Plan , Orders: Orders Microalbumin, Random (w Creat) Today E03.9 - Hypothyroidism, unspecified, E11.40 - Type 2 diabetes mellitus with diabetic neuropathy, unspecified, E11.8 - Type 2 diabetes mellitus with unspecified complications, I10 - Essential (primary) hypertension, I25.10 - Atherosclerotic heart disease of [place] coronary artery without angina pectoris, I71.40 - Abdominal aortic aneurysm, wit hout rupture, unspecified Prostate Specific Antigen Scr Today E03.9 - Hypothyroidism, unspecified, E11.40 - Type 2 diabetes mellitus with diabetic neuropathy, unspecified, E11.8 - Type 2 diabetes mellitus with unspecified complications, I10 - Essential (primary) hypertension, I25.10 - Atherosclerotic heart disease of [place] coronary artery without angina pectoris, I71.40 - Abdominal aortic aneurysm, without rupture, unspecified Complete Blood Count no Diff Today E03.9 - Hypothyroidism, unspecified, E11.40 - Type 2 diabetes mellitus with diabetic neuropathy, unspecified, E11.8 - Type 2 diabetes mellitus with unspecified complications, I10 - Essential (primary) hypertension, I25.10 - Atherosclerotic heart disease of [place] coronary artery without angina pectoris, I71.40 - Abdominal aortic aneurysm, without rupture, unspecified Comprehensive Met. Panel Today E03.9 - Hypothyroidism, unspecified, E11.40 - Type 2 diabetes mellitus with diabetic neuropathy, unspecified, E11.8 - Type 2 diabetes mellitus with unspecified complications, I10 - Essential (primary) hypertension, I25.10 - Atherosclerotic heart disease of [place] coronary artery without angina pectoris, I71.40 - Abdominal aortic aneurysm, without rupture, unspecified Lipid Panel Today E03.9 - Hypothyroidism, unspecified, E11.40 - Type 2 diabetes mellitus with diabetic neuropathy, unspecified, E11.8 - Type 2 diabetes mellitus with unspecified complications, I10 - Essential (primary) hypertension, I25.10 - Atherosclerotic heart disease of [place] coronary artery without angina pectoris, I71.40 - Abdominal aortic aneurysm, without rupture, unspecified TSH reflex Free T4 Today E03.9 - Hypothyroidism, unspecified, E11.40 - Type 2 diabetes mellitus with diabetic neuropathy, unspecified, E11.8 - Type 2 diabetes mellitus with unspecified complications, I10 - Essential (primary) hypertension, I25.10 - Atherosclerotic heart disease of [place] coronary artery without angina pectoris, I71.40 - Abdominal aortic aneurysm, without rupture, unspecified Vitamin B12 and Folate Today E03.9 - Hypothyroidism, unspecified, E11.40 - Type 2 diabetes mellitus with diabetic neuropathy, unspecified, E11.8 - Type 2 diabetes mellitus with unspecified complications, I10 - Essential (primary) hypertension, I25.10 - Atherosclerotic heart disease of [place] coronary artery without angina pectoris, I71.40 - Abdominal aortic aneurysm, without rupture, unspecified Vitamin D 25-OH Total Today E03.9 - Hypothyroidism, unspecified, E11.40 - Type 2 diabetes mellitus with diabetic neuropathy, unspecified, E11.8 - Type 2 diabetes mellitus with unspecified complications, I10 - Essential (primary) hypertension, I25.10 - Atherosclerotic heart disease of [place] coronary artery without angina pectoris, I71.40 - Abdominal aortic aneurysm, without rupture, unspecified AMB Hemoglobin A1c Today E11.9 - Type 2 diabetes mellitus without complications Medications: New atorvastatin 40 mg PO BEDTIME 90 tabs 1RF losartan 100 mg PO QAM 90 tabs 2RF Refilled amlodipine 5 mg PO QAM 90 tabs 0RF gabapentin 300 mg PO TID 270 caps 1RF 90 days levothyroxine 50 mcg PO QAM 90 tabs 2RF metformin ER 500 mg PO TID 270 tabs 2RF 90 days Patient Instructions: Walk-In Care (Urgent Care): We Make it Easy Walk-in for urgent medical issues such as: ? Seasonal Allergies ? Insect Bites ? Cough ? Diarrhea ? Acute Asthma Attacks ? Back, Knee or Joint Pain ? Ear Infection ? Fever without a Rash ? Headaches ? Nausea ? [place] [facility], Rash or Skin Irritation ? Sore Throat ? Sports Physicals ? Vomiting Most insurances are accepted. Patients do not need to be part of the [facility] to seek care at the walk-in clinic. Locations [address], [place] Open Friday through Friday 8am-5pm *Hours may vary due to staffing availability. To confirm Walk-In Care hours please call. [address] [place] [address] ? [phone] [facility] Walk-In Care in [place] provides services to ages 18 and over. Open Friday-Friday: 7 a.m. to 5 p.m. and Friday: 9 a.m. to 3 p.m.* *Hours may vary due to staffing availability. To confirm Walk-In Care hours in [place], please call [phone]. [address] [facility], [place] [address] ? [phone] [facility] Walk-In Care in [place] provides services to ages 12 and over. Open Friday-Friday: 8 a.m. to 5 p.m. Hours may vary due to staffing availability. To confirm Walk-In Care hours in [place], please call [phone]. LABORATORY SERVICES: [facility] Lab ? Primary Location [address] [place] [address] Friday through Friday 6:00 AM ? 5:00 PM Friday 7:00 AM ? 11:00 AM* [phone] The [facility] Lab is centrally located near the front entrance of the [facility] for easy outpatient access. Convenient parking is provided for outpatients. *Hours may vary due to staffing availability. To confirm Laboratory hours for any location, please call [phone]. Offsite Location For your convenience, we offer offsite laboratory draw stations at the following locations: [address] [place] [address] ? [address], [address] Friday through Friday 7:30 AM ? 1:00 PM* [phone] *Hours may vary due to staffing availability. To confirm Laboratory hours for any location, please call [phone]. [place] ? [address] Friday through Friday 6:00 AM ? 3:30 PM* Friday 6:30 AM ? 3 PM* [phone] *Hours may vary due to staffing availability. To confirm Laboratory hours for any location, please call [phone] [place] [address] Friday through Friday 7:30 AM ? 4:00 PM* [phone] *Hours may vary due to staffing availability. To confirm Laboratory hours for any location, please call [phone] [place] [address] Friday through 9:00 AM ? 4:00 PM* *Hours may vary due to staffing availability. To confirm Laboratory hours for any location, please call [phone]. Appointments are not necessary. Walk-ins are welcome. Like all the departments throughout the [facility], our Lab undergoes frequent reviews to ensure the quality and accuracy of test results, and our staff takes special pride in its status as a nationally accredited facility. Patient Portal: [facility] ONE PATIENT. ONE RECORD. BETTER CARE. [facility] has a fully integrated, cutting- edge mobile electronic health information system that has revolutionized the way we care for our patients and manage our organization. This system improves communication and coordination enabling us to provide safe, higher-quality care, and an overall positive experience for staff and patients. Our first priority, as always, is to deliver the highest quality care possible. The system is running in the background supporting that priority. This portal is for all [facility] services and practices. If you are experiencing any technical difficulties with enrolling or logging into the Patient Portal please complete the [facility] Patient Portal Technical Support Form. [facility] now offers a new secure on-line interactive tool for patients to review their health information ? ?Patient Portal. This interactive web portal will enable patients and their families to take an active role in their care by providing easy, secure access to their health information via the internet. The Patient Portal provides patients with instant access to their health information, including laboratory results, medications, allergies, demographic information, visit history, and more. In addition to managing their own care, parents and health care proxies with authorized consent will appreciate the ability to access the records of those individuals for whom they provide care. Please note: if you wish to gain access (Proxy) to another patient?s portal, you will be required to come to the Medical Records Department in person at [facility]. Both the patient giving proxy access and the proxy will need to provide photo identification and complete the appropriate authorization. The Patient Portal also allows track their appointments online. The [facility] Patient Portal also saves patients time by allowing them to submit updates to their demographic and contact information prior to their visits. Portal email notifications will also alert patients to any new activity on their portal, such as test results and new appointments. In order to initially enroll in the [facility] Patient Portal, you will need to enter some required information including the following: * your [facility] Medical Record number * your personal home email address * name * date of Please note: In order to enroll in the [facility] Patient Portal, we need to have your email address on file in your electronic medical record. ?The email address needs to be specific for one person (yourself) in order for your Portal enrollment to be successful. ?You can update your email address in person with our Registration staff when you are registering for a hospital visit. ?Otherwise, you will need to come to the Health Information Management (Medical Records) Department at [facility]. ?We are open from Friday ? Friday from 7:30 a.m. ? 4:30 p.m. ?You will be required to present a photo id. Once you have successfully enrolled in the Patient Portal, you will receive a one-time user id and password for the Portal, sent to your email address. ?This will allow you to log into the Patient Portal within 99 hrs and reset your own logon id and password, and define personal security questions. ?Once your permanent login and password have been set, you can log into the [facility] Patient Portal at any time via the blue button above or from the Portal Logon button on any page of the [facility] website. [facility] and [facility] encourage all of our patients to enroll in Patient Portal as it presents a valuable opportunity for patients and their families to actively participate in their care and stay healthy Welcome to [facility]. ?We look forward to working with you.
--- OUTSIDE RECORDS SUMMARY | 2024-12-30 09:08 | XMS_ITS | Encounter Summary ---
Author Organization [facility] Address [address] [place] [address] Care Team Providers Care Kohinoor Operator Name Role Phone Melvin Lara MD Primary Care Provider [phone] Encounter Details Date Type Department Care Team (Latest Contact Info) Description 01/14/2024 Lab Requisition [facility] [address] [facility] [place] [phone] Melvin Lara MD [address] [facility] [address] [place] [address] Type 2 diabetes mellitus without complications (CMS/HCC [...] Care Team (Late st Contact Info) Description 01/21/2025 11:30 AM EST Office Visit Vascular Surgery - [place] [address] [place] [phone] Elieser Haines MD [address] [place] [phone] documented as of this encounter Procedures Procedure Name Priority Date/Time Associated Diagnosis Comments FRUCTOSAMINE Routine 01/14/2024 11:30 AM EST Type 2 diabetes mellitus without complications (CMS/[facility]) HEMOGLOBIN A1C Routine 01/14/2024 11:30 AM EST Type 2 diabetes mellitus without complications (CMS/HCC) documented in this encounter Results * Fructosamine (01/14/2024 11:30 AM EST) Fructosamine 355 [address] umol /L 01/19/2024 10:18 AM EST [facility] Comment: There is no established reference range for patients aged less than 19 years or greater than 65 years. Test performed at [facility], [address] , [place] [address] Ani Solano MD, PhD - Super[employer] Blood Venous blood specimen / Unknown 01/14/2024 11:30 AM EST 01/16/2024 11:20 AM EST Melvin Lara MD LAB BLOOD ORDERABLES Final Result Performing Organization Address City/[facility]/ZIP Co de Phone Number [facility] [address] [place] [address] * (ABNORMAL) Hemoglobin A1c (01/14/2024 11:30 AM EST) Hemoglobin A1C 6.7(H) <6.5 % LAB CHEMISTRY METHOD 01/16/2024 7:[address] [facility] Mean Bld Glu Estim. 146 mg/dL LAB CHEMISTRY METHOD 01/16/2024 7:[address] [facility] Blood Venous blood specimen / Unknown 01/14/2024 11:30 AM EST 01/16/2024 11:20 AM EST us Melvin Lara MD LAB BLOOD ORDERABLES Final Result [facility] [address] [place] [address], [place] [phone] documented in this encounter Visit Diagnoses Diagnosis Type 2 diabetes mellitus without complications (CMS/HCC V24, CMS/HCC V28) documented in this encounter Care Teams Kohinoor Operator Relationship Specialty Start Date End Date Melvin Lara MD [address] [place] [address] PCP - General Internal Medicine 01/21/24 documented as of this encounter
--- OUTSIDE RECORDS SUMMARY | 2024-12-30 09:08 | XMS_ITS | Clinical Summary ---
Author Organization [facility] Address [address] [place] [address] Phone Care Team Providers Care Trimmer And Reinforcer Name Role Phone Melvin Lara MD Primary Care Provider [phone] Encounters Date Type Department Care Team Description 12/22/2024 7:00 AM EDT Ancillary Procedure [facility] - [facility] [address] [place] [address] Abdominal aortic aneurysm (AAA) 3.0 cm to 5.5 cm in diameter in male ([facility] V24); Infrarenal abdominal aortic aneurysm (AAA) without rupture ([facility] V24) from Last 3 Months Surgical History Surgery Date Site/Laterality Comments CARPAL TUNNEL RELEASE 06/09/1997 Left PROCEDURE: HISTORICAL CARPAL TUNNEL REL KNEE SURGERY 1988 Right PROCEDURE: HISTORICAL KNEE SURGERY; COMMENT: Dr. Lester APPENDECTOMY PROCEDURE: HISTORICAL APPENDECTOMY CATARACT EXTRACTION 01/2023 PROCEDURE: HISTORICAL CATARACT REMOVAL Medical History Medical History Date Comments Cataracts, bilateral 02/22/2019 DX:Cataract s, bilateral; [facility] Osteoarthritis 02/22/2019 DX:Osteoarthriti s History of varicose vein ligation 02/22/2019 DX:History of varicose vein ligation; COMMENT: Dr. 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) Erectile dysfunction 02/22/2019 DX:Erectile dysfunction Type 2 diabetes mellitus wit h cataract ([place] V24, [place] V28) 03/31/2019 DX:Type 2 diabetes mellitus with [...] AM EST Office Visit Vascular Surgery - [place] [address] [facility] [address] [place] [address] Elieser Haines MD [address] [place] [phone] Health Maintenance Due Date Last Done Comments Diabetes: Annual Foot Exam 1956 Diabetes: Annual Retina Eye Exam 1955 Cholesterol Screening (Lipid Panel) 02/09/2022 Falls Risk [...] 11/19/2022, Additional history exists DTaP,Tdap,and Td Vaccines (5 - Td or Tdap) 05/08/2033 05/09/2023, 01/18/2013, 05/22/2007, Additional history exists Hepatitis A Vaccines Aged Out 01/22/2010 No long er eligible based on patient's age to complete this topic Pneumococcal Vaccine: 50+ Years Completed 01/24/2020, 09/04/2015, 01/27/2008 Zoster Vaccines Completed 09/20/2022, 04/24/2022 RSV Immunization Adult Patients Completed 01/21/2024 HIB Vaccines Aged Out No longer eligi [...] LAB CHEMISTRY METHOD 01/16/2024 7:09 PM EST [facility] Mean Bld Glu Estim. 146 mg/dL LAB CHEMISTRY METHOD 01/16/2024 7:09 PM EST [facility] Blood Venous blood specimen / Unknown 01/14/2024 11:30 AM EST 01/16/2024 11:20 AM EST us Melvin Lara MD LAB BLOOD ORDERABLES Final Result [facility] [address] [place] [address], from Last 3 Months or Most Recently Relevant to Health Maintenance Insurance [facility] MEDICARE [employer] MEDICARE Care Teams Trimmer And Reinforcer Relationship Specialty Start Date End Date Melvin Lara MD [address] [place] [id number] PCP - General Internal Medicine 01/21/24
--- OUTSIDE RECORDS SUMMARY | 2024-12-30 09:08 | XMS_ITS | Clinical Summary ---
Author Organization [facility] Address [address] [place] [address] Care Team Providers Care Senior Backup Administrator Name Role Phone Suraj Duran MD Primary Care Provider [phone] Allergies No known active allergies Medications Medication [...] age to complete this topic Care Teams Senior Backup Administrator Relationship Specialty Start Date End Date Suraj Duran MD [address] [facility] [address] [place] [address] PCP - General Internal Medicine 06/16/18
[2024-12-30 09:28] VITALS: BP 134/71; PULSE 75; RESP 16; TEMP 36.6; O2SAT 96; BMI 25.3
== END 2024-12-30 10:17 | disposition home or self-care (01) ==
LOC: HO.HMCFM 08:39
PROVIDERS: PCP Nurse Practitioner Family; Visit Provider Nurse Practitioner Family
DX: Z76.89 Persons encountering health services in other specified circumstances (principal); E11.40 Type 2 diabetes mellitus with diabetic neuropathy, unspecified; E11.319 Type 2 diabetes mellitus with unspecified diabetic retinopathy without macular edema; I25.10 Atherosclerotic heart disease of native coronary artery without angina pectoris; I71.40 Abdominal aortic aneurysm, without rupture, unspecified; E03.9 Hypothyroidism, unspecified; I10 Essential (primary) hypertension; Z79.899 Other long term (current) drug therapy

== ENCOUNTER → 2024-12-30 08:38 | Outpatient (BNVA) | payer MEDICARE, SELFPAY | PROVIDERS: PCP Nurse Practitioner Family; Visit Provider Nurse Practitioner Family | DX: Z76.89 Persons encountering health services in other specified circumstances (principal); E11.40 Type 2 diabetes mellitus with diabetic neuropathy, unspecified; E11.319 Type 2 diabetes mellitus with unspecified diabetic retinopathy without macular edema; I10 Essential (primary) hypertension; Z87.891 Personal history of nicotine dependence; Z79.84 Long term (current) use of oral hypoglycemic drugs | CPT/HCPCS: 83036; 96127; 99202 ==